=== PATIENT | female | born 1960 | race Caucasian/White ===

== ENCOUNTER → 2018-09-08 | Outpatient (CLI) | payer BC ==
[2018-09-08 14:08] LABS: HEMATOCRIT 40.1 % (36.0-47.0); MEAN CORPUSCULAR HEMOGLOBIN 31.1 pg (27.0-33.0); MEAN CORPUSCULAR HGB CONC 32.4 g/dl (32.0-36.5); MEAN CORPUSCULAR VOLUME 95.9 fl (80.0-96.0); PLATELET COUNT, AUTOMATED 296 10^3/uL (150-450); RED BLOOD COUNT 4.18 10^6/uL (4.00-5.40); WHITE BLOOD COUNT 6.1 10^3/uL (4.0-10.0)
[2018-09-08 14:26] LABS: HEMOGLOBIN A1c 5.6 %
[2018-09-08 14:49] LABS: ALBUMIN 3.6 GM/DL (3.2-5.2); ALT/SGPT 20 U/L (12-78); BILIRUBIN,TOTAL 0.9 MG/DL (0.2-1.0); BLOOD UREA NITROGEN 16 MG/DL (7-18); CALCIUM LEVEL 8.6 MG/DL (8.5-10.1); CARBON DIOXIDE LEVEL 29 MEQ/L (21-32); CHLORIDE LEVEL 107 MEQ/L (98-107); CHOLESTEROL LEVEL 189 MG/DL (<200); CHOLESTEROL RISK RATIO 2.392 (<5); CREATININE FOR GFR 0.84 MG/DL (0.55-1.30); GLOMERULAR FILTRATION RATE > 60.0 (>51); GLUCOSE, FASTING 78 MG/DL (70-100); HDL CHOLESTEROL 79 MG/DL (>40); LDL CHOLESTEROL 96 MG/DL (<100); NON-HDL-C 110 MG/DL; POTASSIUM SERUM 4.5 MEQ/L (3.5-5.1); SODIUM LEVEL 141 MEQ/L (136-145); TOTAL 25(OH) VITAMIN D 42.7 NG/ML (30.0-100.0); TOTAL PROTEIN 7.2 GM/DL (6.4-8.2); TRIGLYCERIDES LEVEL 70 MG/DL (<150)
== END ==
LOC: M LAB 13:37
PROVIDERS: ATTEND Family Medicine
DX: D64.9 Anemia, unspecified (principal); E03.9 Hypothyroidism, unspecified

== ENCOUNTER → 2018-11-28 | Outpatient (CLI) | payer BC | LOC: M LAB 14:16 | PROVIDERS: ATTEND Family Medicine | DX: R53.83 Other fatigue (principal) ==

== ENCOUNTER 2019-08-21 00:58 | Inpatient (IN) | payer BC ==
[~2019-08-21] VITALS: Ht 154.9 cm; Wt 47.5 kg
[2019-08-21] MEDS ORDERED: dexameTHASONE 20 MG/5 ML VIAL (J1100) IV ONE (01:45)
[2019-08-21] MEDS: IPRATROPIUM 0.5MG/ALBUTEROL 2.5MG INH SOL UD 3ML (DUONEB)(J7620) NEB SCH ×3 (01:56→02:42)
[2019-08-21] MEDS ORDERED: PRED20TA PO (03:55)
[2019-08-21 05:11] LABS: HEMATOCRIT 40.6 % (36.0-47.0); HEMOGLOBIN 12.8 g/dl (12.0-15.5); MEAN CORPUSCULAR HEMOGLOBIN 30.5 pg (27.0-33.0); MEAN CORPUSCULAR HGB CONC 31.5 g/dl (32.0-36.5); MEAN CORPUSCULAR VOLUME 96.9 fl (80.0-96.0); PLATELET COUNT, AUTOMATED 239 10^3/uL (150-450); RED BLOOD COUNT 4.19 10^6/uL (4.00-5.40); WHITE BLOOD COUNT 4.4 10^3/uL (4.0-10.0)
[2019-08-21 05:19] LABS: ATYPICAL LYMPH 1 % (0-5); BASOPHILS 1 % (0-1); EOSINOPHILS 1 % (0-3); LYMPHOCYTES 50 % (16-44); MONOCYTES 7 % (0-5); NEUTROPHILS 40 % (28-66)
[2019-08-21 05:20] LABS: BLOOD UREA NITROGEN 10 MG/DL (7-18); CARBON DIOXIDE LEVEL 24 MEQ/L (21-32); CHLORIDE LEVEL 103 MEQ/L (98-107); CREATININE FOR GFR 0.86 MG/DL (0.55-1.30); GLOMERULAR FILTRATION RATE > 60.0 (>51); GLUCOSE, FASTING 90 MG/DL (70-100); NT-PRO BNP 35 PG/ML (<125); PLATELET ESTIMATE NORMAL (NORMAL); POTASSIUM SERUM 3.6 MEQ/L (3.5-5.1); SODIUM LEVEL 139 MEQ/L (136-145)
[2019-08-21 05:23] LABS: ABG BASE EXCESS -3.9 (-2.0-2.0); ABG HCO3 19.9 MEQ/L (22.0-26.0); ABG O2 SATURATION 97.4 % (95.0-99.0); ABG PARTIAL PRESSURE CO2 32.3 mmHg (35.0-45.0); ABG PARTIAL PRESSURE O2 91.7 mmHg (75.0-100.0); ABG STANDARD HCO3 21.2 MEQ/L (22.0-26.0); ABG TOTAL CO2 20.9 MEQ/L (22.0-29.0); ABG pH (ARTERIAL) 7.407 UNITS (7.350-7.450)
[2019-08-21] MEDS ORDERED: LISI-542 PO (05:26)
[2019-08-21] MEDS ORDERED: LEVO88TA3 PO (05:26)
--- NOTE | 2019-08-21 05:52 | HPEPDOC ---
[facility] Medical History & Physical Date of Admission Aug 21, 2019 Date of Service: Aug 21, 2019 Primary Care Physician: Hina Chinchilla Attending Physician: NEELIMA ÁLVAREZ MD History and Physical TIME OF SERVICE: 6:10 AM CHIEF COMPLAINT:, Shortness of breath HISTORY OF PRESENT ILLNESS: This is a 53-year-old female that presents with complaints of dyspnea for several days that his become progressively worse over the last week and is worse when she tries to walk. Last night the shortness of breath was so bad that she was unable to sleep, so she came to the ER for evaluation. Associated symptoms include mild nausea cough productive of yellow sputum, and mid 10/10 chest pain that woke her up from sleep radiates to the right side of her back. She cannot identify any factors that aggravate the chest pain and reports that Tylenol helped a little bit. Currently, the chest pain is 1 /10. She denies having vomiting, fevers or chills. 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 Per discussion with Dr. Fan after receiving 3 nebs and steroids, the patient appeared to improve. While he was attempting to discharge her, the patient had a near fall while trying to walk to the nurse's station. REVIEW OF SYSTEMS: 12 point review of systems negative except as listed in HPI PAST MEDICAL/ SURGICAL HISTORY: Chronic HTN GERD Hiatial hernia. History of thyroid cancer / hypothyroidism History of breast cancer SOCIAL HISTORY: She smoked for 38 years but quit 8 years ago FAMILY HISTORY: Cancer ESRD Hypertension ALLERGIES: Please see below. HOME MEDICATIONS: Please see below. PHYSICAL EXAMINATION: VITAL SIGNS: Please see below. GEN: well nourished / well developed/ NAD INTEGUMENT: She is not flushed, she does not have facial plethora HEENT:NCAT / lips are not cyanotic / NC in place / mucus membranes moist and pink CVS: She is tachycardic LUNGS: She is able to speak full sentences without stopping to take a breath / is not using accessory muscles / her lungs are clear to auscultation bilaterally ABDOMEN: there are no masses or lesions / the abdomen is soft & not tender with palpation MSK/EXTREMITIES: range of motion intact in all 4 extremities NEURO: CN 2-12 are grossly intact / speech is not dysarthric PSYCH: alert and oriented to person place and time/ able to understand and follow all commands LABORATORY DATA: See below. IMAGING: X-ray appears unremarkable but the final report is pending. CT of the chest has been performed but the report is pending MICROBIOLOGY: Please see below. ASSESSMENT: Ms. Mahoney is a 59 old female with a history of HTN, GERD, hiatial hernia, thyroid and breast cancer and acquired hypothyroidism who is admitted for evaluation of dyspnea. PLAN: 1. Dyspnea Possibly due to bronchitis vs anxiety vs arrhythmia Less likely due to CO ABG and BNP were unremarkable CT chest to rule out PE is ordered by ER attending is pending Plan: Admit to medical floor/follow-up influenza panel, troponin, and EKG / follow-up chest x-ray and CT reports,/will hold off giving additional neb treatments because she is Tachycardic and feeling jittery 2. Tachycardia 2/2 Nebs - Plan: monitor vitals / f/u Mag 3. Pleuritic Chest Pain - Plan: f/u trop and EKG 4. Chronic HTN - Plan: Lisinopril 5. Hypothyrodism - Plan: Levothyroxine 6.GERD - Plan: PPI DVT PROPHYLAXIS: SCDs DISPOSITION: home after more than 2 midnight's stay Vital Signs Vital Signs Date Time Temp Pulse Resp B/P (MAP) Pulse Ox O2 Delivery O2 Flow Rate FiO2 08/21/19 05:05 102 18 129/68 (88) 96 Nasal Cannula 2.0 08/21/19 05:00 98.8 Laboratory Data Labs 24H Laboratory Tests 2 08/21/19 01:48: Nucleated Red Blood Cells % (auto) 0.0, Neutrophils 40, Lymphocytes (Manual) 50H, Monocytes (Manual) 7H, Eosinophils (Manual) 1, Basophils (Manual) 1, Atypical Lymphocytes 1, Red Blood Cell Morphology NORMAL, Platelet Estimate NORMAL, Anion Gap 12, Glomerular Filtration Rate > 60.0, Calcium Level 9.0, JM-Nok-D-Type Natriuretic Peptide 35 08/21/19 05:10: Blood Gas Bicarbonate Standard 21.2L, Arterial Blood pH 7.407, Arterial Blood Partial Pressure CO2 32.3L, Arterial Blood Partial Pressure O2 91.7, Arterial Blood Total CO2 20.9L, Arterial Blood HCO3 19.9L, Arterial Blood Base Excess - 3.9L, Arterial Blood Oxygen Saturation 97.4 CBC/BMP Laboratory Tests 08/21/19 01:48 Home Medications Scheduled Calcium Carbonate/Vitamin D3 (Calcium 600-Vit D3 400 Tablet) 1 Each Tablet, 3 TAB PO QPM TAKES IN AFTERNOON Cyanocobalamin (Vitamin B-12) (Vitamin B-12) 1,000 Mcg Tablet, 1,000 MCG PO QPM TAKES IN AFTERNOON Levothyroxine Sodium (Levothyroxine Sodium) 88 Mcg Tablet, 88 MCG PO DAILY Lisinopril (Lisinopril) 5 Mg Tablet, 5 MG PO DAILY Pantoprazole Sodium (Pantoprazole Sodium) 40 Mg Tablet.dr, 40 MG PO QHS TAKES AT MIDNIGHT Allergies Coded Allergies: Penicillins (Verified Allergy, Severe, anaphylaxis, 08/21/19) Sulfa (Sulfonamide Antibiotics) (Verified Allergy, Intermediate, lesions on back of throat, 08/21/19) A-FIB/CHADSVASC A-FIB History Current/History of A-Fib/PAF?: No Current PO Anticoag Therapy: No NEELIMA ÁLVAREZ MD Aug 21, 2019 05:52
[2019-08-21] MEDS ORDERED: ISOVUE-370 76% 100ML VIAL (Q9967) As Ordered ONE (05:54)
[2019-08-21] MEDS ORDERED: MOM 30ML SUSPENSION UDC PO PRN (06:00)
[2019-08-21] MEDS ORDERED: MAALOX 30 ML SUSP *UDC PO PRN (06:00)
[2019-08-21] MEDS ORDERED: CYAN100050 PO (06:18)
[2019-08-21] MEDS ORDERED: PANT40TA3 PO (06:18)
[2019-08-21] MEDS ORDERED: CALC1TAB63 PO (06:18)
--- NOTE | 2019-08-21 06:34 | REPVR ---
PROCEDURE INFORMATION: Exam: CT Angiography Chest With Contrast Exam date and time: 08/21/2019 6:01 AM Age: 59 years old Clinical indication: Dyspnea; Additional info: Dysp TECHNIQUE: Imaging protocol: Computed tomographic angiography of the chest with intravenous contrast. 3D rendering: MIP and/or 3D reconstructed images were created by the technologist. Radiation optimization: All CT scans at this facility use at least one of these dose optimization techniques: automated exposure control; mA and/or kV adjustment per patient size (includes targeted exams where dose is matched to clinical indication); or iterative reconstruction. Contrast material: ISOVUE 370; Contrast volume: 75 ml; Contrast route: IV; COMPARISON: CT ANGIO CHEST 08/10/2013 2:39 AM FINDINGS: Pulmonary arteries: The main pulmonary artery measures 25 mm. No pulmonary embolism is identified. Aorta: The ascending thoracic aorta measures 30 mm. Lungs: Minimal to mild bullous changes, greatest in the right upper lobe with slight interstitial coarsening and minimal scattered fibro-atelectatic change. Pulmonary hyperinflation with flattening of the hemidiaphragms. Pleural space: Unremarkable. No pneumothorax. No pleural effusion. Heart: Unremarkable. No cardiomegaly. No pericardial effusion. Liver: Metallic density at the anterolateral aspect of the hepatic dome. Gallbladder and bile ducts: Status post cholecystectomy. Mild biliary dilation which is attributed to prior cholecystectomy and is likely physiologic. The CBD measures 8 mm. Kidneys and ureters: There are bilateral renal cysts measuring up to 10 mm on the left. Lymph nodes: Unremarkable. No enlarged lymph nodes. Bones/joints: Unremarkable. No acute fracture. Soft tissues: Unremarkable. IMPRESSION: 1. Minimal to mild bullous changes, greatest in the right upper lobe with slight interstitial coarsening and minimal scattered fibro-atelectatic change. There is hyperinflation consistent with some degree of COPD. 2. Status post cholecystectomy. 3. Otherwise negative CTA chest. No pulmonary embolism is identified. Electronically signed by: Bob Nunez On 08/21/2019 06:33:57 AM
[2019-08-21] MEDS ORDERED: DIGOXIN INJ 0.5 MG/2 ML AMP (J1160) IV STA (07:28)
[2019-08-21 07:43] LABS: INR 1.04; PROTHROMBIN TIME 13.3 SECONDS (11.8-14.0)
--- NOTE | 2019-08-21 07:53 | REP ---
Clinical: Shortness of breath . Comparison: 06/12/2016 . Technique: PA and lateral. Findings: The mediastinum and cardiac silhouette are normal. The lung andre are clear and without acute consolidation, effusion, or pneumothorax. Subtle oligemia involving the right upper lung zone may represent early emphysematous change. The skeletal structures are intact and normal. Impression: 1. No acute cardiopulmonary process. Electronically Signed by Alireza Kraft MD 08/21/2019 07:44 A
[2019-08-21] MEDS ORDERED: lisinopriL 5 MG TAB PO SCH (09:00)
[2019-08-21] MEDS: DOCUSATE SODIUM 100 MG CAP PO SCH ×2 (09:00→20:34)
--- NOTE | 2019-08-21 09:49 | ECGEPIP ---
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
[2019-08-21 10:00] VITALS: BP 125/81
[2019-08-21] MEDS: LEVOTHYROXINE 88MCG TABLET (0.088 MG) PO SCH (10:23)
--- NOTE | 2019-08-21 10:32 | IPNPDOC ---
Text Note Date of Service The patient was seen on 08/21/19. NOTE Subjective: Patient is a 59-year-old female presented to the emergency [facility] around midnight last evening with worsening short of breath. Patient states she's been short of breath for a few weeks and is been worsening. Patient also has been feeling palpitations. Patient was admitted for dyspnea however, just prior to going up to the floor, patient's heart rate went up to about 150. EKG was performed which showed either atrial fibrillation or atrial flutter with a rapid ventricular rate. Patient says she felt worsening of her palpitations. Patient does feel like her breathing is better. Patient's main complaint she is very thirsty. Objective: Vitals: (see below) General: No acute distress, laying comfortably in bed with nasal cannula in place. HEENT: Normocephalic, atraumatic, moist mucous membranes. Neck: No JVD or lymphadenopathy Cardiac: Regular rhythm, tachycardic rate, no murmurs, normal S1 and normal S2. Pulm: Diminished breath sounds in all lung andre. Abd: NT/ND + BS Ext: No edema or cyanosis. Radial pulse 2/4 and regular rhythm, tachycardic rate Labs (see below) Images: A chest x-ray performed on 08/21/2019 was reported as showing no acute cardiopulmonary process. A CT angiography of the chest performed on 08/21/2019 was reported to show minimal to mild bullous changes, greatest in the right upper lobe with slight interstitial coarsening and minimal scattered fibro-atelectatic change. There is hyperinflation cirrhosis with some degree of COPD., Status post cholecystectomy, otherwise negative CTA of the chest. No pulmonary embolus is identified. Assessment: 51-year-old female presented to the hospital with dyspnea which is now thought to be secondary to tachyarrhythmia. Patient was diagnosed with a tachyarrhythmia which is thought to be either atrial fibrillation with rapid ventricular rate or atrial flutter with a 2-1 conduction block. Patient was status post 0.125 mg of digoxin. Plan 1. New onset tachyarrhythmia. Patient appeared to be either in atrial fibrillation or atrial flutter on EKG however, patient quickly converted back to sinus tachycardia. Patient was given 0.125 mg of digoxin the IV. Patient was initially in a go to the surgical floor however, because of this new onset tachyarrhythmia, patient has been transferred to the progressive care unit for closer monitoring. Patient will remain on telemetry. Echocardiogram has been ordered. Another the patient's heart rate is around 100, repeat EKG will be ordered. Based on the results of the echocardiogram, cardiology will be consulted. If the patient's heart rate becomes elevated again, a repeat EKG will be performed and the patient will be given adenosine. TSH and free T4 has also been ordered. 2. Dyspnea: Patient's CT angiogram of the chest do not show any pulmonary embolism however, it does show COPD. Patient is not wheezing on exam so did not believe this is a COPD exacerbation. I think the patient's dyspnea is secondary to the patient's tachyarrhythmia. We will continue to monitor. 3. Pleuritic chest pain: I believe is secondary to the patient's tachyarrhythmia. Patient's troponin was negative. 4. Hypertension: Patient's lisinopril will be held at this time in order to allow for us to use other medications to slow down the patient's heart rate and not to make her too hypotensive. 5. Hypothyroidism: Patient is currently on the thyroxine. We're checking a TSH and free T4 to ensure that this is within the right range this is not what is causing her tachyarrhythmia. If they're within normal range, we will continue with her current dose. 6. GERD: Continue with PPI DVT prophy: Sequential compression devices Dispo: Pending clinical improvement of tachyarrhythmia VS,Fishbone, I+O VS, Fishbone, I+O Laboratory Tests 08/21/19 01:48 Vital Signs Date Time Temp Pulse Resp B/P (MAP) Pulse Ox O2 Delivery O2 Flow Rate FiO2 08/21/19 10:00 97.5 99 18 125/81 (96) 97 Room Air 08/21/19 09:42 3.0 GME ATTESTATION GME ATTESTATION My faculty preceptor for this patient encounter was physically present during the encounter and was fully available. All aspects of the patient interview, examination, medical decision making process, and medical care plan development were reviewed and approved by the faculty preceptor. The faculty preceptor is aware and concurs with the plan as stated in the body of this note and will attest to such by his/her cosignature. ATTENDING NOTE 59 yo woman with a history of thyroid cancer s/p thyroidectomy and parathyroidectomy and remote hx of breast CA who presented with shortness of breath and found to be hypoxemic on room air requiring 4L NC reporting palpitations and LAZARO that progressed to dyspnea at rest with investigations that were negative for ACS, PNA , PE or acute heart failure now found to be going into an episodic supraventricular tachycardia that was initially thought to be AFib vs. Aflutter and broke with digoxin and she feels better. At this time our plan is to continue monitoring while switching her nebs to tiotrop/levalbuterol and if she goes into RVR again, will give adenosine to nature of her SVT. In the meantime we have ordered a TTE. Of note, she reported a history of progressive peripheral neuropathy over the last 1-2 years that she had been discussing a neurology consultation with her PCP. At this time, we are waiting for her TTE before formulating a question for cardiology, and will hold off anticoagulation without a clear history of Afib. GRAEME WOLFE DO Aug 21, 2019 10:32 VLAD DUARTE MD Aug 21, 2019 21:15
[2019-08-21 12:01] VITALS: BP 118/74
[2019-08-21 12:18] LABS: FREE T4 1.12 NG/DL (0.76-1.46); THYROID STIMULATING HORMONE 8.89 uIU/ML (0.358-3.740)
[2019-08-21 14:00] VITALS: BP 117/63
--- NOTE | 2019-08-21 14:14 | ECGEPIP ---
[facility] Test Date: 2019-08-21 Pat Name: RIKI AARON Department: Room: [place] [address] Gender: Female Radiologic Technician: MARIA GUADALUPE : 1960 Requested By: GRAEME WOLFE Order Number: [id number] Reading MD: China Gonzales Measurements Intervals [place] Rate: 82 P: 72 VT: 196 QRS: 103 QRSD: 99 T: 142 QT: 367 QTc: 430 Interpretive Statements SINUS RHYTHM PREVIOUSLY A FIB INDETERMINATE AXIS MODERATE DIFFUSE sttw abn NOT PROMINENT 08/21/19 EA EARLIER LOW VOLT LIMB LEADS PULM DIS PATTERN Electronically Signed on 08-21-2019 14:14:11 EST by China Gonzales
[2019-08-21] MEDS: TIOTROPIUM INHALER/CAPSULE (SPIRIVA) INH SCH (14:56)
[2019-08-21] MEDS: LEVALBUTEROL 1.25 MG/0.5 ML CONCENTRATE NEB INH SCH ×2 (15:31→20:16)
[2019-08-21 20:00] VITALS: BP 119/71
[2019-08-21] MEDS: PANTOPRAZOLE 40MG TAB (PROTONIX) PO SCH (20:34)
[2019-08-22] VITALS (7 sets, daily range): BP systolic 119–133; BP diastolic 69–78
[2019-08-22] MEDS: LEVALBUTEROL 1.25 MG/0.5 ML CONCENTRATE NEB INH SCH ×2 (01:57→08:13)
[2019-08-22 05:51] LABS: HEMATOCRIT 38.5 % (36.0-47.0); HEMOGLOBIN 12.1 g/dl (12.0-15.5); MEAN CORPUSCULAR HEMOGLOBIN 30.6 pg (27.0-33.0); MEAN CORPUSCULAR HGB CONC 31.4 g/dl (32.0-36.5); MEAN CORPUSCULAR VOLUME 97.5 fl (80.0-96.0); PLATELET COUNT, AUTOMATED 237 10^3/uL (150-450); RED BLOOD COUNT 3.95 10^6/uL (4.00-5.40); WHITE BLOOD COUNT 9.7 10^3/uL (4.0-10.0)
[2019-08-22] MEDS: LEVOTHYROXINE 88MCG TABLET (0.088 MG) PO SCH (06:14)
[2019-08-22 06:17] LABS: BLOOD UREA NITROGEN 10 MG/DL (7-18); CALCIUM LEVEL 8.4 MG/DL (8.5-10.1); CARBON DIOXIDE LEVEL 30 MEQ/L (21-32); CHLORIDE LEVEL 109 MEQ/L (98-107); CREATININE FOR GFR 0.93 MG/DL (0.55-1.30); GLOMERULAR FILTRATION RATE > 60.0 (>51); GLUCOSE, FASTING 87 MG/DL (70-100); SODIUM LEVEL 144 MEQ/L (136-145)
[2019-08-22] MEDS: TIOTROPIUM INHALER/CAPSULE (SPIRIVA) INH SCH (08:13)
[2019-08-22] MEDS: DOCUSATE SODIUM 100 MG CAP PO SCH ×2 (08:58→20:08)
[2019-08-22] MEDS: ACETAMINOPHEN TAB 650MG DOSE (2X325MG) PO PRN (09:05)
[2019-08-22] MEDS ORDERED: LEVALBUTEROL 1.25 MG/0.5 ML CONCENTRATE NEB INH PRN (09:15)
--- NOTE | 2019-08-22 11:49 | ECHO ---
DATE OF PROCEDURE: 08/21/2019 HEIGHT: 61 inches WEIGHT: 116 pounds. BODY SURFACE AREA 1.5 meters squared. INPATIENT: PCU room 3215 REFERRING PHYSICIAN: Dr. Cody Salas INDICATION: Dysrhythmia. MEASUREMENTS: 2D Measurements: RV - 2.5 cm LV - 4.0 cm Septum - 0.8 cm Posterior wall - 0.8 cm Aortic root - 3.36 cm LA - 2.5 cm LVEF - 75% Doppler Measurements: AV - 1.24 meters per second LVOT - 1.1 meters per second LVOT diameter - 2.0 cm MV - E - 60, A - 70, E/A ratio 0.9 Early mitral deceleration time - 239 milliseconds E prime medial - 8.8, A prime medial - 12, E prime lateral - 9.2 PV - 0.8 meters per second Pulmonary artery acceleration time - 120 milliseconds RVSP - 20 mmHg IVC - 1.9 cm COMMENTS: Normal sinus rhythm without intraventricular conduction disturbance. M-mode and two-dimensional echocardiography was performed with pulsed, continuous wave, color flow and tissue Doppler studies. Normal left ventricular size, wall thickness and hyperkinetic wall motion. Normal left atrial size and Doppler assessment of LV diastolic function and estimated mean left atrial pressure. Normal right heart chamber sizes and motion and estimated pulmonary arterial pressure. Normal IVC size and collapse against an elevated central venous pressure. Normal appearing and functioning valvular structures. No apparent intracardiac mass or pericardial effusion.
--- NOTE | 2019-08-22 13:11 | IPNPDOC ---
Text Note Date of Service The patient was seen on 08/22/19. NOTE Subjective: -Doing OK this morning, no dysrhythmia events overnight on telemetry. Feels nauseous this morning, reports that it is quite mild. Objective: Vitals: (see below) General: No acute distress, laying comfortably in bed with nasal cannula in place. HEENT: Normocephalic, atraumatic, moist mucous membranes. Neck: No JVD or lymphadenopathy Cardiac: RRR, no murmurs, normal S1 and normal S2. Pulm: CTAB Abd: NT/ND + BS Ext: No edema or cyanosis. Radial pulse 2/4 and regular rhythm Images: Chest x-ray: performed on 08/21/2019 was reported as showing no acute cardio pulmonary process. CTA: 08/21/2019 was reported to show minimal to mild bullous changes, greatest i n the right upper lobe with slight interstitial coarsening and minimal scattered fibro-atelectatic change. There is hyperinflation cirrhosis with some degree of COPD. Status post cholecystectomy, otherwise negative CTA of the chest. No pulmonary embolus is identified. Assessment: 59 yo woman with a history of thyroid cancer s/p thyroidectomy and parathyroidectomy and remote hx of breast CA who presented with shortness of breath and found to be hypoxemic on room air requiring 4L NC reporting pa lpitations and LAZARO that progressed to dyspnea at rest with investigations that were negative for ACS, PNA , PE or acute heart failure now found to be going into an episodic supraventricular tachycardia that was initially thought to be AFib vs. Aflutter and broke with digoxin and she feels better. At this time our plan is to continue monitoring while giving home tiotrop and PRN levalbuterol and if she goes into RVR again, will give adenosine to nature of her SVT. In the meantime we have ordered a TTE. Of note, she reported a history of progressive peripheral neuropathy over the last 1-2 years that she had been discussing a neurology consultation with her PCP. At this time, we are waiting for her TTE before formulating a question for cardiology, and will hold off anticoagulation without a clear history of Afib. Plan 1. New onset symptomatic tachyarrhythmia. -Patient appeared to be either in atrial fibrillation or atrial flutter on EKG in the ED and quickly converted back to sinus tachycardia and normalized after 0.125 mg of digoxin. -Continue telemetry. -Echocardiogram was done, pending read. -Based on the results of the echocardiogram, cardiology might be consulted. -If the patient's heart rate becomes elevated again, to repeat EKG and give adenosine to decipher the nature of the SVT. -TSH elevated with normal free T4 2. Dyspnea: -CTA without PNA, fluid overload or PE with evidence of COPD. -No acute signs of exacerbation will give home tiotropium and PRN levalbuterol 3. Pleuritic chest pain: I believe is secondary to the patient's tachyarrhythmia. Patient's troponin was negative and EKG was non ischemic 4. Hypertension: continue QHS lisinopril 5. Hypothyroidism: continue synthroid 6. GERD: Continue with PPI DVT prophy: Sequential compression devices Dispo: Pending clinical improvement of tachyarrhythmia VS,Fishbone, I+O VS, Fishbone, I+O Laboratory Tests 08/22/19 05:26 Vital Signs Date Time Temp Pulse Resp B/P (MAP) Pulse Ox O2 Delivery O2 Flow Rate FiO2 08/22/19 08:00 98.2 65 18 125/78 (94) 92 Nasal Cannula 2.0 I&O- Last 24 Hours up to 6 AM 08/22/19 06:00 Intake Total 540 ml Output Total 1200 ml Balance -660 ml LVAD DUARTE MD Aug 22, 2019 09:20
[2019-08-22] MEDS: PANTOPRAZOLE 40MG TAB (PROTONIX) PO SCH (20:08)
[2019-08-22] MEDS ORDERED: lisinopriL 5 MG TAB PO SCH ×2 (21:00)
[2019-08-23] VITALS: BP 122/70
[2019-08-23 04:00] VITALS: BP 125/77
[2019-08-23] MEDS: LEVOTHYROXINE 88MCG TABLET (0.088 MG) PO SCH (05:15)
[2019-08-23 05:40] LABS: HEMATOCRIT 39.2 % (36.0-47.0); HEMOGLOBIN 12.3 g/dl (12.0-15.5); MEAN CORPUSCULAR HEMOGLOBIN 30.9 pg (27.0-33.0); MEAN CORPUSCULAR HGB CONC 31.4 g/dl (32.0-36.5); MEAN CORPUSCULAR VOLUME 98.5 fl (80.0-96.0); PLATELET COUNT, AUTOMATED 231 10^3/uL (150-450); RED BLOOD COUNT 3.98 10^6/uL (4.00-5.40); WHITE BLOOD COUNT 7.5 10^3/uL (4.0-10.0)
[2019-08-23 05:59] LABS: BLOOD UREA NITROGEN 14 MG/DL (7-18); CALCIUM LEVEL 8.4 MG/DL (8.5-10.1); CARBON DIOXIDE LEVEL 30 MEQ/L (21-32); CHLORIDE LEVEL 105 MEQ/L (98-107); CREATININE FOR GFR 0.88 MG/DL (0.55-1.30); GLOMERULAR FILTRATION RATE > 60.0 (>51); GLUCOSE, FASTING 83 MG/DL (70-100); POTASSIUM SERUM 4.1 MEQ/L (3.5-5.1); SODIUM LEVEL 141 MEQ/L (136-145)
[2019-08-23] MEDS: DOCUSATE SODIUM 100 MG CAP PO SCH (07:33)
[2019-08-23] MEDS: ACETAMINOPHEN TAB 650MG DOSE (2X325MG) PO PRN (07:34)
[2019-08-23 08:00] VITALS: BP 107/77
[2019-08-23] MEDS: TIOTROPIUM INHALER/CAPSULE (SPIRIVA) INH SCH (08:17)
[2019-08-23 12:00] VITALS: BP 121/77
--- NOTE | 2019-08-23 12:26 | DS.PDOC ---
Discharge Summary General Date of Admission Aug 21, 2019 at 05:53 Date of Discharge 08/23/2019 Attending Physician: VLAD DUARTE MD Discharge Summary PROCEDURES PERFORMED DURING STAY: None ADMITTING DIAGNOSES: 1. Dyspnea DISCHARGE DIAGNOSES: 1. Symptomatic episodic supraventricular tachycardia 2. Chronic HTN 3. GERD 4. Hiatial hernia. 5. History of thyroid cancer / hypothyroidism 6. History of breast cancer COMPLICATIONS/CHIEF COMPLAINT: Dyspnea. HISTORY OF PRESENT ILLNESS: 9 yo woman with a history of thyroid cancer s/p thyroidectomy and parathyroidectomy and remote hx of breast CA who presented with shortness of breath and found to be hypoxemic on room air requiring 4L NC reporting palpitations and LAZARO that progressed to dyspnea at rest HOSPITAL COURSE: Initial investigations were negative for ACS, PNA , PE or acute heart failure and she had an episode of a supraventricular tachycardia initially that was recorded as AFib vs. Aflutter with a poor baseline to decipher it, that broke with digoxin and she felt better. We admitted her to the PCU with a plan to continue telemetry while giving home tiotroprium and PRN levalbuterol for her SOB possibly being due to a URI and if she had gone into RVR again would give adenosine to decipher the nature of her SVT. She never did have another tachycardia episode. We ordered a TTE that was grossly normal. Give the transient nature of the tachycardia without clear evidence of Afib we decided not to place her on therapeutic anticoagulation. On further discussion, she told me that she has been seen by Dr. Jimenez before for these episodic symptomatic tachycardia episodes, has had 2 holter monitors one of which was a 30 day recorder without significant events. Given that, I am now discharging her home w ith a referral to cardiology to follow up with Dr. Jimenez on these persistent episodes of symptomatic transient tachycardia. DISCHARGE MEDICATIONS: Please see below. ALLERGIES: Please see below. PHYSICAL EXAMINATION ON DISCHARGE: VITAL SIGNS: Please see below. General: No acute distress, sitting up comfortably in bed on room air HEENT: Normocephalic, atraumatic, moist mucous membranes. Neck: No JVD or lymphadenopathy Cardiac: RRR, no murmurs, normal S1 and normal S2. Pulm: CTAB, breathing comfortably on room air Abd: NT/ND + BS Ext: No edema or cyanosis, WWP, 2+ DP pulses LABORATORY DATA: Please see below. IMAGING: Chest x-ray: performed on 08/21/2019 was reported as showing no acute cardiopulmonary process. CTA: 08/21/2019 was reported to show minimal to mild bullous changes, greatest in the right upper lobe with slight interstitial coarsening and minimal scattered fibro-atelectatic change. There is hyperinflation cirrhosis with some degree of COPD. Status post cholecystectomy, otherwise negative CTA of the chest. No pulmonary embolus is identified. TTE: Normal sinus rhythm without intraventricular conduction disturbance. M-mode and two-dimensional echocardiography was performed with pulsed, continuous wave, color flow and tissue Doppler studies. Normal left ventricular size, wall thickness and hyperkinetic wall motion. Normal left atrial size and Doppler assessment of LV diastolic function and estimated mean left atrial pressure. Normal right heart chamber sizes and motion and estimated pulmonary arterial pressure. Normal IVC size and collapse against an elevated central venous pressure. Normal appearing and functioning valvular structures. PROGNOSIS: Good ACTIVITY: As tolerated DIET: Regular DISCHARGE PLAN: Home with cardiology referral to Dr. Jimenez' office DISPOSITION: Home DISCHARGE INSTRUCTIONS: 1. Please follow up with the referral we made to cardiology to be evaluated by Dr. Jimenez ITEMS TO FOLLOWUP ON ON OUTPATIENT: 1. Episodic symptomatic tachycardia DISCHARGE CONDITION: Stable. TIME SPENT ON DISCHARGE: 46 minutes. Vital Signs/I&Os Vital Signs Date Time Temp Pulse Resp B/P (MAP) Pulse Ox O2 Delivery O2 Flow Rate FiO2 08/23/19 08:00 98.3 73 16 107/77 (87) 92 Room Air 08/23/19 04:00 0.5 I&O- Last 24 Hours up to 6 AM 08/23/19 06:00 Intake Total 960 ml Output Total 1150 ml Balance -190 ml Laboratory Data Labs 24H Laboratory Tests 2 08/23/19 05:15: Nucleated Red Blood Cells % (auto) 0.0, Anion Gap 6L, Glomerular Filtration Rate > 60.0, Calcium Level 8.4L CBC/BMP Laboratory Tests 08/23/19 05:15 Microbiology Microbiology 08/22/19 Respiratory Virus Panel (PCR) ([facility]) - Final, Complete 08/21/19 Blood Culture - Preliminary, Resulted No Growth after 48 hours. All Specime... Discharge Medications Scheduled Calcium Carbonate/Vitamin D3 (Calcium 600-Vit D3 400 Tablet) 1 Each Tablet, 3 TAB PO QPM, (Reported) TAKES IN AFTERNOON Cyanocobalamin (Vitamin B-12) (Vitamin B-12) 1,000 Mcg Tablet, 1,000 MCG PO QPM, (Reported) TAKES IN AFTERNOON Levothyroxine Sodium (Levothyroxine Sodium) 88 Mcg Tablet, 88 MCG PO DAILY, (Reported) Lisinopril (Lisinopril) 5 Mg Tablet, 5 MG PO DAILY, (Reported) Pantoprazole Sodium (Pantoprazole Sodium) 40 Mg Tablet.dr, 40 MG PO QHS, (Reported) TAKES AT MIDNIGHT Allergies Coded Allergies: Penicillins (Verified Allergy, Severe, anaphylaxis, 08/21/19) Sulfa (Sulfonamide Antibiotics) (Verified Allergy, Intermediate, lesions on back of throat, 08/21/19) VLAD DUARTE MD Aug 23, 2019 12:26
[2019-08-23] MEDS ORDERED: SODIUM CHLORIDE NASAL 0.65% SPRAY BTL (OCEAN) PRN (12:30)
[2019-08-23] MEDS ORDERED: TIOT18INH INH (13:32)
== END 2019-08-23 13:30 | disposition home or self-care (01) | DRG 201 ==
LOC: M ED 00:58 → M ED INP 05:53 → ENRESERV 06:05 → M PCU 10:03
PROVIDERS: ADMIT Internal Medicine; ATTEND Internal Medicine
DX: I47.1 Supraventricular tachycardia (principal); I10 Essential (primary) hypertension; K74.60 Unspecified cirrhosis of liver; K21.9 Gastro-esophageal reflux disease without esophagitis; K44.9 Diaphragmatic hernia without obstruction or gangrene; Z85.3 Personal history of malignant neoplasm of breast; E89.0 Postprocedural hypothyroidism; Z85.850 Personal history of malignant neoplasm of thyroid; J44.9 Chronic obstructive pulmonary disease, unspecified; Z88.0 Allergy status to penicillin; Z88.2 Allergy status to sulfonamides; Z79.899 Other long term (current) drug therapy; Z90.49 Acquired absence of other specified parts of digestive tract

== ENCOUNTER → 2019-10-02 | Outpatient (REF) | payer BC ==
[~2019-10-02] MED LIST: CALC1TAB63 PO; CYAN100050 PO; LEVO88TA3 PO; LISI-542 PO; PANT40TA3 PO; PRED20TA PO; TIOT18INH INH
[2019-10-02 22:28] LABS: INFLUENZA A AMPLIFICATION NEGATIVE (NEGATIVE); INFLUENZA B AMPLIFICATION NEGATIVE (NEGATIVE)
== END ==
LOC: M LAB REF 21:31
PROVIDERS: ATTEND Physician Assistant Medical
DX: J11.1 Influenza due to unidentified influenza virus with other respiratory manifestations (principal); J02.9 Acute pharyngitis, unspecified

== ENCOUNTER → 2020-02-08 | Outpatient (CLI) | payer BC ==
[~2020-02-08] MED LIST changes: +PANT40TA29 PO; -PANT40TA3 PO; +PROAAER10 INH; +SYMB16INH INH
[2020-03-09 13:11] LABS: HEMATOCRIT 43.5 % (36.0-47.0); HEMOGLOBIN 13.7 g/dl (12.0-15.5); MEAN CORPUSCULAR HEMOGLOBIN 31.3 pg (27.0-33.0); MEAN CORPUSCULAR HGB CONC 31.5 g/dl (32.0-36.5); MEAN CORPUSCULAR VOLUME 99.3 fl (80.0-96.0); PLATELET COUNT, AUTOMATED 307 10^3/uL (150-450); RED BLOOD COUNT 4.38 10^6/uL (4.00-5.40); WHITE BLOOD COUNT 5.3 10^3/uL (4.0-10.0)
[2020-03-09 13:37] LABS: ERYTHROCYTE SEDIMENTATION RATE 6 mm/hr (0-30)
[2020-03-25 08:36] LABS: ALBUMIN 3.9 GM/DL (3.2-5.2); ALT/SGPT 17 U/L (12-78); BLOOD UREA NITROGEN 14 MG/DL (7-18); CALCIUM LEVEL 8.9 MG/DL (8.5-10.1); CARBON DIOXIDE LEVEL 31 MEQ/L (21-32); CHLORIDE LEVEL 108 MEQ/L (98-107); CHOLESTEROL LEVEL 197 MG/DL (<200); CHOLESTEROL RISK RATIO 2.373 (<5); CREATININE FOR GFR 0.94 MG/DL (0.55-1.30); GLOMERULAR FILTRATION RATE > 60.0 (>51); GLUCOSE, FASTING 79 MG/DL (70-100); HDL CHOLESTEROL 83 MG/DL (>40); IRON (FE) 112 UG/DL (50-170); LDL CHOLESTEROL 99 MG/DL (<100); NON-HDL-C 114 MG/DL; PERCENT SATURATION 33.1 % (13.2-45.0); SODIUM LEVEL 138 MEQ/L (136-145); TOTAL IRON BINDING CAPACITY 338 UG/DL (250-450); TOTAL PROTEIN 7.5 GM/DL (6.4-8.2); TRIGLYCERIDES LEVEL 73 MG/DL (<150)
== END ==
LOC: M LAB 11:19
PROVIDERS: ATTEND Family Medicine
DX: D64.9 Anemia, unspecified (principal); R53.83 Other fatigue; E03.9 Hypothyroidism, unspecified

== ENCOUNTER → 2020-03-07 | Outpatient (CLI) | payer BC | LOC: M LABSMTC 11:41 | PROVIDERS: ATTEND Anesthesiology | DX: Z03.818 Encounter for observation for suspected exposure to other biological agents ruled out (principal); Z11.59 Encounter for screening for other viral diseases | CPT/HCPCS: C9803; U0003 ==

== ENCOUNTER 2020-03-12 07:33 | Day surgery (SDC) | payer BC ==
[~2020-03-12] VITALS: Ht 154.9 cm; Wt 49.0 kg
[~2020-03-12 07:33] MED LIST changes: +NS 1,000 ML IV ONE
[2020-03-12] MEDS ORDERED: LIDOCAINE 2% 100MG/5ML SDV (FOR ANES.) As Ordered ONE (09:13)
[2020-03-12] MEDS ORDERED: propofoL 200 MG/20 ML VIAL As Ordered ONE (09:13)
[2020-03-12] MEDS ORDERED: fentaNYL 100 MCG/2 ML INJECTION (J3010) As Ordered ONE (09:13)
[2020-03-12 10:00] VITALS: BP 125/70
--- NOTE | 2020-03-20 11:31 | ROOR ---
Patient Name: Phyllis Mahoney Procedure Date: 03/12/2020 8:01 AM Date of : 1960 Age: 60 Room: [facility] Gender: Female Note Status: Finalized Procedure: Upper Endoscopy + Biopsies Indications: Heartburn, Exclusion of Chi's esophagus Providers: Luc Moralez MD Referring MD: LIUDMILA LIRIANO MD Requesting Provider: Medicines: Monitored Anesthesia Care Complications: No immediate complications. Procedure: Pre-Anesthesia Assessment: - The heart rate, respiratory rate, oxygen saturations, blood pressure, adequacy of pulmonary ventilation, and response to care were monitored throughout the procedure. The Endoscope was introduced through the mouth, and advanced to the second part of duodenum. The upper GI endoscopy was accomplished without difficulty. The patient tolerated the procedure well. Findings: The Z-line was regular and was found 40 cm from the incisors. Multiple biopsies were obtained with cold forceps for evaluation to rule out Chi's Esophagus randomly at the gastroesophageal junction. No other significant abnormalities were identified in a careful examination of the stomach. The exam of the duodenum was otherwise normal. Impression: - Z-line regular, 40 cm from the incisors. - Multiple biopsies were obtained at the gastroesophageal junction. - The examination was otherwise normal. Recommendation: - Patient has a contact number available for emergencies. The signs and symptoms of potential delayed complications were discussed with the patient. Return to normal activities tomorrow. Written discharge instructions were provided to the patient. - High fiber diet. - Discharge patient to home. - Follow an antireflux regimen. - Continue present medications. - Await pathology results. - Telephone GI clinic for pathology results in 1 week. - Return to referring physician. - Repeat upper endoscopy after studies are complete for surveillance. - The findings and recommendations were discussed with the patient. Luc Moralez MD Luc Moralez MD 03/12/2020 9:13:40 AM Electronically signed by Luc Moralez MD Number of Addenda: 0 Note Initiated On: 03/12/2020 8:01 AM Estimated Blood Loss: Estimated blood loss: none.
== END 2020-03-12 10:25 | disposition home or self-care (01) ==
LOC: M OPP 07:33
PROVIDERS: ATTEND Internal Medicine Gastroenterology
DX: K64.0 First degree hemorrhoids (principal); K57.30 Diverticulosis of large intestine without perforation or abscess without bleeding; R63.4 Abnormal weight loss; R19.4 Change in bowel habit; R12 Heartburn; E03.9 Hypothyroidism, unspecified; J44.9 Chronic obstructive pulmonary disease, unspecified; Z79.899 Other long term (current) drug therapy; Z88.0 Allergy status to penicillin; Z88.2 Allergy status to sulfonamides; Z88.5 Allergy status to narcotic agent; Z87.891 Personal history of nicotine dependence
CPT/HCPCS: 43239; 45380; 88305; J3010

== ENCOUNTER → 2020-07-25 | Outpatient (CLI) | payer SELFPAY ==
[~2020-07-25] MED LIST changes: -NS 1,000 ML IV ONE
== END ==
LOC: M LABSMTC 10:54
PROVIDERS: ATTEND Pediatrics
DX: Z20.822 Contact with and (suspected) exposure to COVID-19 (principal)

== ENCOUNTER 2020-08-16 12:27 | Inpatient (IN) | payer BC ==
[~2020-08-16] VITALS: Ht 154.9 cm; Wt 46.9 kg
[~2020-08-16 12:27] MED LIST changes: -LISI-542 PO; +LISI-898 PO
--- OUTSIDE RECORDS SUMMARY | 2020-08-16 12:40 | CCD ---
Author Author [facility] Organization [facility] Address Unknown Phone Unavailable Care Team Providers Care Entry Level Name Role Phone Terrence Moralez MD Unavailable Unavailable Terrence Moralez MD Unavailable Unavailable Terrence Moralez MD Unavailable Unavailable Terrence Moralez MD Unavailable Unavailable Terrence Moralez MD Unavailable Unavailable Terrence Moralez MD Unavailable Unavailable Terrence Moralez MD Unavailable Unavailable Terrence Moralez MD Unavailable Unavailable Terrence Moralez MD Unavailable Unavailable Terrence Moralez MD Unavailable Unavailable Terrence Moralez MD Unavailable Unavailable Terrence Moralez MD Unavailable Unavailable Terrence Moralez MD Unavailable Unavailable Terrence Moralez MD Unavailable Unavailable Terrence Moralez MD Unavailable Unavailable Terrence Moralez MD Unavailable Unavailable Terrence Moralez MD Unavailable Unavailable Terrence Moralez MD Unavailable Unavailable Terrence Moralez MD Unavailable Unavailable Terrence Moralez MD Unavailable Unavailable Terrence Moralez MD Unavailable Unavailable Terrence Moralez MD Unavailable Unavailable Terrence Moralez MD Unavailable Unavailable Terrence Moralez MD Unavailable Unavailable Terrence Moralez MD Unavailable Unavailable Terrence Moralez MD Unavailable Unavailable Terrence Moralez MD Unavailable Unavailable Terrence Moralez MD Unavailable Unavailable Terrence Moralez MD Unavailable Unavailable Terrence Moralez MD Unavailable Unavailable Terrence Moralez MD Unavailable Unavailable Terrence Moralez MD Unavailable Unavailable Terrence Moralez MD Unavailable Unavailable Kirt, S Luc MD Unavailable Unavailable Kirt, S Luc MD Unavailable Unavailable Kirt, S Luc MD Unavailable Unavailable Kirt, S Luc MD Unavailable Unavailable Kirt, S Luc MD Unavailable Unavailable Kirt, S Luc MD Unavailable Unavailable Kirt, S Luc MD Unavailable Unavailable Kirt, S Luc MD Unavailable Unavailable Kirt, S Luc MD Unavailable Unavailable Kirt, S Luc MD Unavailable Unavailable Kirt, S Luc MD Unavailable Unavailable Kirt, S Luc MD Unavailable Unavailable Kirt, S Luc MD Unavailable Unavailable Kirt, S Luc MD Unavailable Unavailable Kirt, S Luc MD Unavailable Unavailable Kirt, S Luc MD Unavailable Unavailable Lyn Chinchilla MD Unavailable Unavailable Lyn Chinchilla MD Unavailable Unavailable Lyn Chinchilla MD Unavailable Unavailable Lyn Chinchilla MD Unavailable Unavailable Lyn Chinchilla MD Unavailable Unavailable Lyn Chinchilla MD Unavailable Unavailable Lyn Chinchilla MD Unavailable Unavailable Lyn Chinchilla MD Unavailable Unavailable Lyn Chinchilla MD Unavailable Unavailable Lyn Chinchilla MD Unavailable Unavailable Lyn Chinchilla MD Unavailable Unavailable Lyn Chinchilla MD Unavailable Unavailable Lyn Chinchilla MD Unavailable Unavailable Lyn Chinchilla MD Unavailable Unavailable Lyn Chinchilla MD Unavailable Unavailable Lyn Chinchilla MD Unavailable Unavailable Lyn Chinchilla MD Unavailable Unavailable Lyn Chinchilla MD Unavailable Unavailable Lyn Chinchilla MD Unavailable Unavailable Lyn Chinchilla MD Unavailable Unavailable Lyn Chinchilla MD Unavailable Unavailable Lyn Chinchilla MD Unavailable Unavailable Lyn Chinchilla MD Unavailable Unavailable Lyn Chinchilla MD Unavailable Unavailable Lyn Chinchilla MD Unavailable Unavailable Lyn Chinchilla MD Unavailable Unavailable Lyn Chinchilla MD Unavailable Unavailable Lyn Chinchilla MD Unavailable Unavailable Lyn Chinchilla MD Unavailable Unavailable Lyn Chinchilla MD Unavailable Unavailable Lyn Chinchilla MD Unavailable Unavailable Lyn Chinchilla MD Unavailable Unavailable Lyn Chinchilla MD Unavailable Unavailable Lyn Chinchilla MD Unavailable Unavailable Lyn Chinchilla MD Unavailable Unavailable Lyn Chinchilla MD Unavailable Unavailable Chinchilla, Valerie Moid MD Unavailable Unavailable Chinchilla, Valerie Moid MD Unavailable Unavailable Chinchilla, Valerie Moid MD Unavailable Unavailable Chinchilla, Valerie Moid MD Unavailable Unavailable Chinchilla, Valerie Moid MD Unavailable Unavailable Chinchilla, Valerie Moid MD Unavailable Unavailable Chinchilla, Valerie Moid MD Unavailable Unavailable Chinchilla, Valerie Moid MD Unavailable Unavailable Chinchilla, Vaelrie Moid MD Unavailable Unavailable Chinchilla, Valerie Moid MD Unavailable Unavailable Chinchilla, Valerie Moid MD Unavailable Unavailable Chinchilla, Valerie Moid MD Unavailable Unavailable Chinchilla, Valerie Moid MD Unavailable Unavailable Chinchilla, Valerie Moid MD Unavailable Unavailable Chinchilla, Valerie Moid MD Unavailable Unavailable Chinchilla, Valerie Moid MD Unavailable Unavailable Chinchilla, Valerie Moid MD Unavailable Unavailable Chinchilla, Valerie Moid MD Unavailable Unavailable Chinchilla, Valerie Moid MD Unavailable Unavailable Chinchilla, Valerie Moid MD Unavailable Unavailable Chinchilla, Valerie Moid MD Unavailable Unavailable Chinchilla, Valerie Moid MD Unavailable Unavailable Chinchilla, Valerie Moid MD Unavailable Unavailable Chinchilla, Valerie Moid MD Unavailable Unavailable Chinchilla, Valerie Moid MD Unavailable Unavailable Chinchilla, Valerie Moid MD Unavailable Unavailable Chinchilla, Valerie Moid MD Unavailable Unavailable Chinchilla, Valerie Moid MD Unavailable Unavailable Chinchilla, Valerie Moid MD Unavailable Unavailable Re-disclosure Warning The records that you are about to access may contain information from federally-assisted alcohol or drug abuse programs. If such information is present, then the following federally mandated warning applies: This information has been disclosed to you from records protected by federal confidentiality rules (42 CFR part 2). The federal rules prohibit you from making any further disclosure of this information unless further disclosure is expressly permitted by the written consent of the person to whom it pertains or as otherwise permitted by 42 CFR part 2. A general authorization for the release of medical or other information is NOT sufficient for this purpose. The Federal rules restrict any use of the information to criminally investigate or prosecute any alcohol or drug abuse patient.The records that you are about to access may contain highly sensitive health information, the redisclosure of which is protected by Article 27-F of the [facility] Public Health law. If you continue you may have access to information: Regarding HIV / AIDS; Provided by facilities licensed or operated by the [facility] Office of Mental Health; or Provided by the [facility] Office for People With Developmental Disabilities. If such information is present, then the following [facility] mandated warning applies: This information has been disclosed to you from confidential records which are protected by state law. State law prohibits you from making any further disclosure of this information without the specific written consent of the person to whom it pertains, or as otherwise permitted by law. Any unauthorized further disclosure in violation of state law may result in a fine or assisted sentence or both. A general authorization for the release of medical or other information is NOT sufficient authorization for further disc losure. Family History Family Member Name Family Member Gender Family Member Status Date o f Status Description Data Source(s) Unknown Female Problem [facility] ([facility]) Encounters Encounter Providers Location Date Indications Data Source(s ) Outpatient Attender: Luc Moralez MD Main Office 02/08/2020 03:30:00 PM EDT [facility] ([facility]) Outpatient Referrer: Mela Chinchilla MD 09/04/2019 10:01:00 AM [facility] Radiology Imaging Medications Medication Brand Name Start Date Product Form Dose Route Admi nistrative Instructions Pharmacy Instructions Status Indications Reaction Description Data Source(s) 88 mcg 06/21/2020 12:00:00 AM EST tablet 90 TAKE ONE TABLET BY MOUTH EVERY DAY TAKE ONE TABLET BY MOUTH EVERY DAY SOLD: 06/24/2020 [facility] 5 mg 06/21/2020 12:00:00 AM EST tablet 90 TAKE ONE TABLET BY MOUTH EVERY DAY TAKE ONE TABLET BY MOUTH EVERY DAY SOLD: 06/24/2020 [facility] pantoprazole 40 MG Delayed Release Oral Tablet PANTOPRAZOLE SODIUM 06/21/2020 12:00:00 AM EST tablet,delayed release (DR/EC) 90 T LOI ONE TABLET BY MOUTH EVERY DAY TAKE ONE TABLET BY MOUTH EVERY DAY SOLD: 06/24/2020 [facility] 17.5-3.13-1.6 gram 03/07/2020 12:00:00 AM EDT [place] 354 USE DIRECTED USE DIRECTED SOLD: 03/07/2020 [facility] Suprep Bowel Prep Kit Suprep Bowel Prep Kit 02/08/2020 12:00:00 AM EDT completed [facility] ([facility]) 40 mg 02/01/2020 12:00:00 AM EDT tablet,delayed release (DR/EC) 90 TAKE ONE TABLET BY MOUTH EVERY DAY TAKE ONE TABLET BY MOUTH EVERY DAY SOLD: 02/05/2020 [facility] 5 mg 02/01/2020 12:00:00 AM EDT tablet 90 TAKE ONE TABLET BY MOUTH EVERY DAY TAKE ONE TABLET BY MOUTH EVERY DAY SOLD: 02/05/2020 [facility] 88 mcg 02/01/2020 12:00:00 AM EDT tablet 90 TAKE ONE TABLET BY MOUTH EVERY DAY TAKE ONE TABLET BY MOUTH EVERY DAY SOLD: 02/05/2020 [facility] 90 mcg/actuation 10/07/2019 12:00:00 AM EDT HFA aerosol inha ler 36 INHALE 2 PUFFS BY MOUTH FOUR TIMES A DAY INHALE 2 PUFFS BY MOUTH FOUR TIMES A DAY SOLD: 10/09/2019 [facility] 160-4.5 mcg/actuation 10/06/2019 12:00:00 AM EDT HFA aerosol inhaler 20 INHALE 2 PUFFS BY MOUTH TWICE DAILY INHALE 2 PUFFS BY MOUTH TWICE DAILY SOLD: 10/09/2019 [facility] 250 mg 10/03/2019 12:00:00 AM EDT tablet 6 TAKE 2 TABLETS BY MOUTH AT ONCE ON DAY 1 THEN TAKE 1 DAILY DAYS 2-5 TAKE 2 TABLETS BY MOUTH AT ONCE ON DAY 1 THEN TAKE 1 DAILY DAYS 2-5 SOLD: 10/05/2019 [facility] 40 mg 09/04/2019 12:00:00 AM EST tablet,delayed release (DR/EC) 90 TAKE 1 TABLET BY MOUTH DAILY TAKE 1 TABLET BY MOUTH DAILY SOLD: 09/04/2019 [facility] 5 mg 09/04/2019 12:00:00 AM EST tablet 90 TAKE 1 TABLET BY MOUTH DAILY TAKE 1 TABLET BY MOUTH DAILY SOLD: 09/04/2019 [facility] 160-4.5 mcg/actuation 09/04/2019 12:00:00 AM EST HFA aerosol inhaler 10 INHALE 1 PUFF BY MOUTH TWICE A DAY INHALE 1 PUFF BY MOUTH TWICE A DAY SOLD: 09/04/2019 [facility] 500 mg 08/24/2019 12:00:00 AM EST tablet 14 TAKE 1 TABLET BY MOUTH TWO TIMES A DAY TAKE 1 TABLET BY MOUTH TWO TIMES A DAY SOLD: 08/24/2019 [facility] 90 mcg/actuation 08/24/2019 12:00:00 AM EST HFA aerosol inha ler 18 INHALE 2 PUFFS BY MOUTH FOUR TIMES A DAY INHALE 2 PUFFS BY MOUTH FOUR TIMES A DAY SOLD: 08/24/2019 [facility] 10 mg 08/24/2019 12:00:00 AM EST tablet 30 TAKE 1 TABLET BY MOUTH THREE TIMES A DAY TAKE 1 TABLET BY MOUTH THREE TIMES A DAY SOLD: 08/24/2019 [facility] 3.5-10,000-1 mg/mL-unit/mL-% 07/06/2019 12:00:00 AM EST drop s,suspension 10 INSTILL 3 DROPS IN RIGHT EAR THREE TIMES A DAY DIRECTED INSTILL 3 DROPS IN RIGHT EAR THREE TIMES A DAY DIRECTED SOLD: 07/10/2019 [facility] Insurance Providers Payer name Policy type / Coverage type Policy ID Covered constitution party ID Covered constitution party's relationship to wolf Policy Wolf Plan Information [place] [id number] SP [id number] SELF PAY ONLY [id number] SP [id number] EXCELLUS BCBS B [id number] S [id number] [place] PPO 302/307 [id number] SP [id number] BC/BS [facility] Healthy Blue Medigap Part B Self BCBS [place] Ppo U/W Commercial Self [place] PPO 302/307 [place] PPO 302/307 Self RIKI GALEN BCBS [place] PPO 302/307 [place] PPO 302/307 [id number] SP [id number] [place] PPO 302/307 [id number] SP [id number] HMO BLUE [id number] SP [id number] Surgeries/Procedures Procedure Description Date Indications Data Source(s) UPPER NDSC BIOPSY SINGLE/MULTIPLE 03/12/2020 12:00:00 AM EDT [facility] ([facility]) COLONOSCOPY W/BIOPSY SINGLE/MULTIPLE 03/12/2020 12:00: 00 AM EDT [facility] ([facility]) Results ID Date Data Source [id number] 07/25/2020 12:00:00 AM EST [facility] Name Value Range Interpretation Code Description Data Delores rce(s) Supporting Document(s) SARS-CoV-2 (COVID-19) RNA [Presence] in Respiratory specimen by ADRIANNA with probe detection Not Detected [facility] This lab was ordered by [facility] and reported by [facility]. ID Date Data Source [id number] 03/12/2020 09:34:00 AM EDT [facility] ([facility]) Name Value Range Interpretation Code Description Data Delores rce(s) Supporting Document(s) Surgical pathology study Laboratory test result [facility] ([facility]) FINAL DIAGNOSIS A-Esophagus, below Z-line, biopsy: Squamocolumnar junction mucosa with chronic inflammation and reparative changes. No intestinal metaplasia seen. B-Sigmoid colon polyp, polypectomy: Hyperplastic polyp. 03/13/2020 - 1037 CLINICAL DIAGNOSIS Heartburn, weight loss, change in bowel habits, H/O colon polyps 03/12/2020 - 1429 GROSS DIAGNOSIS A - Received in formalin labeled "biopsy below Z line R/O Chi's" and consists of a fragment of tissue 0.2 x 0.1 x 0.1 cm. All in one. B - Received in formalin labeled "biopsy polyp sigmoid colon" and consists of a fragment of tissue 0.1 x 0.1 x 0.1 cm. All in one. -OA 03/12/2020 - 1429 Signed LARRY TUCKER MD 03/13/2020 1038 ID Date Data Source [id number] 03/07/2020 11:45:00 AM EDT [facility] Name Value Range Interpretation Code Description Data Delores rce(s) Supporting Document(s) SARS coronavirus 2 RNA [facility] This lab was ordered by [facility] and reported by [facility]. Procedure Vital Signs ID Date Data Source UNK Name Value Range Interpretation Code Description Data Source(s) Body weight 47.628 kg 47.628 kg [facility] ([facility]) Body mass index (BMI) [Ratio] 19.5 kg/m2 19.5 k g/m2 [facility] ([facility]) Heart rate 74 /min 74 /min [facility] ([facility]) Diastolic blood pressure 86 mm[Hg] 86 mm[Hg] [facility] ([facility]) Systolic blood pressure 121 mm[Hg] 121 mm[Hg] M [facility] ([facility]) Body weight 105.00 [lb_av] 105.00 [lb_av] SANDRA T ([facility]) Temp 97.2 Body height 61.5 [in_i] 61.5 [in_i] [facility] 5'1.50"
--- NOTE | 2020-08-16 13:35 | REP ---
INDICATION: syncope COMPARISON: None. TECHNIQUE: PA/Lateral FINDINGS: Lungs: Clear, no infiltrate. Heart: Normal in size. Mediastinum: Mediastinal silhouette unremarkable. Pleural angles: Unremarkable.. Bones and soft tissues: Unremarkable. IMPRESSION: No acute pulmonary disease. <Electronically signed by Cassius Mendosa > 08/16/20 [id number]
[2020-08-16 13:38] LABS: BASO % 0.3 % (0.0-1.0); HEMATOCRIT 42.6 % (36.0-47.0); HEMOGLOBIN 13.5 g/dl (12.0-15.5); LYMPH # 1.5 10^3/uL (1.5-5.0); LYMPH % 40.5 % (24.0-44.0); MEAN CORPUSCULAR HEMOGLOBIN 30.9 pg (27.0-33.0); MEAN CORPUSCULAR HGB CONC 31.7 g/dl (32.0-36.5); MEAN CORPUSCULAR VOLUME 97.5 fl (80.0-96.0); MONO # 0.8 10^3/uL (0.0-0.8); MONO % 20.7 % (0.0-5.0); NEUTROPHILS # 1.4 10^3/uL (1.5-8.5); NEUTROPHILS % 38.2 % (36.0-66.0); PLATELET COUNT, AUTOMATED 222 10^3/uL (150-450); RED BLOOD COUNT 4.37 10^6/uL (4.00-5.40); WHITE BLOOD COUNT 3.6 10^3/uL (4.0-10.0)
--- OUTSIDE RECORDS SUMMARY | 2020-08-16 13:59 | CCD ---
Author Author [facility] Organization [facility] Address Unknown Phone Unavailable Care Team Providers Care Acid Mixer Name Role Phone Terrence Moralez MD Unavailable Unavailable Terernce Moralez MD Unavailable Unavailable Terrence Moralez MD [...] Unavailable Unavailable Lyn Chinchilla MD Unavailable Unavailable yLn Chinchilla MD Unavailable Unavailable Lyn Chinchilla MD [...] is protected by Article 27-F of the [facility] Public Health law. If you continue you may have access to information: Regarding HIV / AIDS; Provided by facilities licensed or operated by the [facility] Office of Mental Health; or Provided by the [facility] Office for People With Developmental Disabilities. If such information is present, then the following [facility] mandated warning applies: This information has been [...] law may result in a fine or halfway sentence or both. A general authorization for [...] Referrer: Mela Chinchilla MD 09/04/2019 10:01:00 AM [facility] Medications Medication Brand Name Start [...] type / Coverage type Policy ID Covered democrat ID Covered democrat's relationship to wolf Policy Wolf Plan Information BC[place] [id number] SP [id number] SELF PAY ONLY [id number] SP [id number] EXCELLUS BCBS B [id number] S [id number] [place] PPO 302/307 [id number] SP [id number] BC/BS Hmo Healthy Blue Medigap Part B Self BCBS [place] Ppo U/W Commercial Self [place] PPO 302/307 [place] 302/307 Self RIKI GALEN [place] PPO 302/307 [place] 302/307 [id number] SP [id number] [place] PPO 302/307 [id number] SP [id number] HMO BLUE [id number] SP [id number] Surgeries/Procedures Procedure Description Date Indications Data Source(s) UPPER NDSC BIOPSY SINGLE/MULTIPLE 03/12/2020 12:00:00 AM EDT [facility] ([facility]) COLONOSCOPY W/BIOPSY SINGLE/MULTIPLE 03/12/2020 12:00: 00 AM EDT [facility] ([facility]) Results ID Date Data Source [id number] 07/25/2020 12:00:00 AM EST [facility] Name Value Range Interpretation Code Description Data Delores rce(s) Supporting Document(s) SARS-CoV-2 (COVID-19) RNA [Presence] in Respiratory specimen by ADRIANNA with probe detection Not Detected [facility] This lab was ordered by [facility] and reported by [email or web address]. ID Date Data Source [id number] 03/12/2020 09:34:00 AM EDT [facility] ([facility]) Name Value Range Interpretation Code Description Data Delores rce(s) Supporting Document(s) Surgical pathology study Laboratory test result [facility] ([facility]) FINAL DIAGNOSIS A-Esophagus, below Z-line, biopsy: Squamocolumnar [...] MD 03/13/2020 1038 ID Date Data Source [id number] 03/07/2020 11:45:00 AM EDT [facility] Name Value Range Interpretation Code Description Data Delores rce(s) Supporting Document(s) SARS coronavirus 2 RNA [facility] This lab was ordered by [facility] and reported by [facility]. Procedure Vital Signs ID Date Data Source UNK Name Value Range Interpretation Code Description Data Source(s) Body weight 47.628 kg 47.628 kg [facility] ([facility]) Body mass index (BMI) [Ratio] 19.5 kg/m2 19.5 k g/m2 [facility] ([facility]) Heart rate 74 /min 74 /min [facility] ([facility]) Diastolic blood pressure 86 mm[Hg] 86 mm[Hg] [facility] ([facility]) Systolic blood pressure 121 mm[Hg] 121 mm[Hg] [facility] Body weight 105.00 [lb_av] 105.00 [lb_av] SANDRA T ([facility]) Temp 97.2 Body height 61.5 [in_i] 61.5 [in_i] KEE[facility] ([facility]) 5'1.50"
[2020-08-16 14:20] LABS: ALBUMIN 3.6 GM/DL (3.2-5.2); ALT/SGPT 23 U/L (12-78); BILIRUBIN,DIRECT 0.1 MG/DL (0.0-0.2); BILIRUBIN,TOTAL 0.7 MG/DL (0.2-1.0); BLOOD UREA NITROGEN 19 MG/DL (7-18); CALCIUM LEVEL 8.7 MG/DL (8.5-10.1); CARBON DIOXIDE LEVEL 25 MEQ/L (21-32); CHLORIDE LEVEL 107 MEQ/L (98-107); CK-MB VALUE MASS < 1.0 NG/ML (<3.6); CPK CREATINE PHOSPHOKINASE 173 U/L (26-192); CREATININE FOR GFR 0.99 MG/DL (0.55-1.30); FREE T4 0.96 NG/DL (0.76-1.46); GLOMERULAR FILTRATION RATE > 60.0 (>51); GLUCOSE, FASTING 70 MG/DL (70-100); MB/CK RELATIVE INDEX 0.58 (< OR =4); POTASSIUM SERUM 4.3 MEQ/L (3.5-5.1); SODIUM LEVEL 140 MEQ/L (136-145); TOTAL PROTEIN 7.3 GM/DL (6.4-8.2); TROPONIN I < 0.02 NG/ML (< 0.10)
[2020-08-16] MEDS ORDERED: NS 1,000 ML IV ONE (14:30)
--- NOTE | 2020-08-16 14:59 | REP ---
INDICATION: fall/trauma. COMPARISON: Comparison head CT study August 23, 2006.. TECHNIQUE: Helical scanning is acquired. 5 mm axial images were reformatted. Coronal MPR images were generated. FINDINGS: Bone window settings demonstrate an intact bony calvarium. There is no evidence of skull fracture or incidental bony calvarial lesion. The visualized paranasal sinuses appear clear. No intraorbital abnormality is seen. On soft tissue window setting images; the lateral, third, and fourth ventricles are normal in size and position. Mendosa-white differentiation pattern is normal above and below the tentorium. There are is no evidence of intracranial hemorrhage. No mass, edema, infarction, or midline shift is seen. No extra-axial fluid collection is appreciated. IMPRESSION: Negative noncontrast head CT. <Electronically signed by Graham Cartagena > 08/16/20 [id number]
--- NOTE | 2020-08-16 15:00 | REP ---
INDICATION: fall/trauma. COMPARISON: None. TECHNIQUE: Helical scanning is acquired and overlapping 2 mm high resolution axial images were generated and reviewed at bone and soft tissue window settings. Coronal and sagittal multiplanar re-formations images are generated. FINDINGS: There is no evidence of cervical spine element fracture. No skull base fracture is seen. Cervical vertebral body heights are preserved. Alignment is normal. Facet joints are normally aligned bilaterally at each cervical level on multiplanar re-formations images. There is no evidence of intraspinal or paraspinal hematoma. No extra vertebral abnormality is seen. Surgical clips are noted bilaterally in the neck status post thyroidectomy. No adenopathy is seen. Advanced emphysematous changes are noted in the lung apices. Minimal degenerative disc disease is present at C4-5 C5-6 and to a lesser extent C6-7. IMPRESSION: Negative CT study of the cervical spine without contrast. No fracture seen. <Electronically signed by Graham Cartagena > 08/16/20 [id number]
--- NOTE | 2020-08-16 15:02 | REP ---
INDICATION: fall/trauma. COMPARISON: NONE. TECHNIQUE: Helical scanning is acquired and 3 mm axial images re-formatted. Coronal MPR images are generated and reviewed. FINDINGS: Five no mandibular fracture is seen. Zygomatic arches are intact. Orbital margins are normal. The the nasal bone and inferior maxillary spine are intact. Orbital and paranasal sinus margins are intact. Bony nasal septum is in the midline. Paranasal sinuses are clear. No intraorbital hematoma is seen. No facial hematoma is appreciated. No skull base fracture is seen. IMPRESSION: No traumatic abnormality noted. <Electronically signed by Graham Cartagena > 08/16/20 [id number]
[2020-08-16] MEDS ORDERED: PANT40TA29 PO (18:00)
[2020-08-16] MEDS: CIPROFLOXACIN 400 MG in IV 1 EA IV SCH (18:51)
[2020-08-16 19:31] LABS: RSV AMPLIFICATION NEGATIVE (NEGATIVE)
--- NOTE | 2020-08-16 20:23 | ECGEPIP ---
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
--- NOTE | 2020-08-16 20:34 | HPEPDOC ---
[facility] Medical History & Physical Date of Admission Aug 16, 2020 Date of Service: Aug 16, 2020 History and Physical CHIEF COMPLAINT: Syncope HISTORY OF PRESENT ILLNESS: 60 year old female presents for several episodes of syncope over the past few days. First episode was related to micturition. She has also had a few other episodes that appear to occur without any particular instigating factor. She denies chest pain, shortness of breath, headaches, changes in vision, abdominal pain or N/V/D. She is a questionable historian. REVIEW OF SYSTEMS: 12 point review of systems negative except as listed in HPI PAST MEDICAL/ SURGICAL HISTORY: Chronic HTN GERD Hiatial hernia. History of thyroid cancer / hypothyroidism History of breast cancer SOCIAL HISTORY: She smoked for 38 years but quit 8 years ago FAMILY HISTORY: Cancer ESRD Hypertension ALLERGIES: Please see below. HOME MEDICATIONS: Please see below. PHYSICAL EXAMINATION: VITAL SIGNS: Please see below. GEN: well nourished / well developed/ NAD INTEGUMENT: She is not flushed, she does not have facial plethora HEENT:NCAT, EOMI CVS: +S1S2, RRR LUNGS: CTA B/L ABDOMEN: soft, NT, +BS Ext: no edema NEURO: CN 2-12 are grossly intact / speech is not dysarthric PSYCH: alert and oriented to person place and time/ able to understand and follow all commands LABORATORY DATA: See below. IMAGING: X-ray appears unremarkable but the final report is pending. CT of the chest has been performed but the report is pending MICROBIOLOGY: Please see below. ASSESSMENT: 59 old female with a history of HTN, GERD, hiatial hernia, thyroid and breast cancer and acquired hypothyroidism who is admitted for evaluation of syncopal episodes, found to have UTI. PLAN: #syncope - telemetry monitoring - check for recent echocardiogram - repeat if no recent echo - check orthostatics #UTI - start levaquin - check cultures - check blood cultures # +COVID-19 - isolation precautions #HTN - continue lisinopril #hypothyroidism - continue oral supplementation #GERD - continue PPI #DVT prophylaxis - mechanical Vital Signs Vital Signs Date Time Temp Pulse Resp B/P (MAP) Pulse Ox O2 Delivery O2 Flow Rate FiO2 08/16/20 16:30 76 123/78 (93) 08/16/20 14:42 95 08/16/20 12:28 98.6 22 Room Air Laboratory Data Labs 24H Laboratory Tests 2 08/16/20 13:28: Immature Granulocyte % (Auto) 0.3, Neutrophils (%) (Auto) 38.2, Lymphocytes (%) (Auto) 40.5, Monocytes (%) (Auto) 20.7H, Eosinophils (%) (Auto) 0.0, Basophils (%) (Auto) 0.3, Neutrophils # (Auto) 1.4L, Lymphocytes # (Auto) 1.5, Monocytes # (Auto) 0.8, Eosinophils # (Auto) 0.0, Basophils # (Auto) 0.0, Nucleated Red Blood Cells % (auto) 0.0, Anion Gap 8, Glomerular Filtration Rate > 60.0, Calciu m Level 8.7, Total Bilirubin 0.7, Direct Bilirubin 0.1, Aspartate Amino Transf (AST/SGOT) 29, Alanine Aminotransferase (ALT/SGPT) 23, Alkaline Phosphatase 66, Total Creatine Kinase 173, Creatine Kinase MB < 1.0, Creatine Kinase MB Relative Index 0.58, Troponin I < 0.02, Total Protein 7.3, Albumin 3.6, Albumin/Globulin Ratio 1.0L, Thyroid Stimulating Hormone (TSH) 7.600H, Free Thyroxine 0.96 08/16/20 17:19: Urine Color ANA LAURA, Urine Appearance CLOUDYH, Urine pH 5.0, Urine Specific [place] 1.029, Urine Protein 1+H, Urine Glucose (UA) NEGATIVE, Urine Ketones 1+H, Urine Blood 2+H, Urine Nitrite NEGATIVE, Urine Bilirubin NEGATIVE, Urine Urobilinogen 0.2, Urine Leukocyte Esterase 2+H, Urine WBC (Auto) 16H, Urine RBC (Auto) 7H, Urine Hyaline Casts (Auto) 0, Urine Bacteria (Auto) 2+H, Urine Squamous Epithelial Cells 13, Urine Mucus (Auto) LARGE, Urine Sperm (Auto) CBC/BMP Laboratory Tests 08/16/20 13:28 Microbiology Microbiology 08/16/20 Urine Culture, Received Pending Home Medications Scheduled Budesonide/Formoterol (Symbicort 160-4.5 Mcg Inhaler) 6 Gm Hfa.aer.ad, 2 PUFF INH DAILY Calcium Carbonate/Vitamin D3 (Calcium 600-Vit D3 400 Tablet) 1 Each Tablet, 3 TAB PO QPM TAKES IN AFTERNOON Cyanocobalamin (Vitamin B-12) (Vitamin B-12) 1,000 Mcg Tablet, 1,000 MCG PO QPM TAKES IN AFTERNOON Levothyroxine Sodium (Levothyroxine Sodium) 88 Mcg Tablet, 88 MCG PO DAILY Lisinopril (Lisinopril) 5 Mg Tablet, 5 MG PO DAILY Scheduled PRN Albuterol Sulfate (Proair Hfa) 8.5 Gm Hfa.aer.ad, 2 PUFF INH for SHORTNESS OF BREATH Pantoprazole Sodium (Pantoprazole Sodium) 40 Mg Tablet.dr, 40 MG PO DAILY PRN for HEARTBURN Allergies Coded Allergies: Penicillins (Verified Allergy, Severe, anaphylaxis, 03/11/20) Sulfa (Sulfonamide Antibiotics) (Verified Allergy, Intermediate, lesions on back of throat, 03/11/20) codeine (Verified Adverse Reaction, Intermediate, HEADACHES, 03/11/20) A-FIB/CHADSVASC A-FIB History Current/History of A-Fib/PAF?: KALI Ulloa MD Aug 16, 2020 17:55
[2020-08-16] MEDS ORDERED: ALBUTEROL 90 MCG/ACT 8GM HFA INHALER INH PRN (20:45)
[2020-08-16] MEDS ORDERED: PANTOPRAZOLE 40MG TAB (PROTONIX) PO PRN (20:45)
[2020-08-16] MEDS ORDERED: ACETAMINOPHEN TAB 650MG DOSE (2X325MG) PO PRN (21:00)
[2020-08-16] MEDS ORDERED: ONDANSETRON 4MG/2ML VIAL IV PRN (21:00)
[2020-08-16 21:46] VITALS: BP_SYST 118; BP_SYST 120; BP_SYST 123; BP_DIAS 65; BP_DIAS 67; BP_DIAS 72
[2020-08-16 23:52] VITALS: BP 106/65
[2020-08-17] VITALS (8 sets, daily range): BP systolic 100–116; BP diastolic 58–74
[2020-08-17] MEDS: CIPROFLOXACIN 400 MG in IV 1 EA IV SCH (06:31)
[2020-08-17] MEDS: LEVOTHYROXINE 88MCG TABLET (0.088 MG) PO SCH (06:32)
[2020-08-17] MEDS ORDERED: SYMBICORT 160/4.5MCG INHALER 6GM INH SCH (08:00)
[2020-08-17] MEDS ORDERED: lisinopriL 5 MG TAB PO SCH ×2 (09:00→21:00)
[2020-08-17 09:24] LABS: HEMATOCRIT 37.3 % (36.0-47.0); HEMOGLOBIN 12.1 g/dl (12.0-15.5); MEAN CORPUSCULAR HEMOGLOBIN 31.7 pg (27.0-33.0); MEAN CORPUSCULAR HGB CONC 32.4 g/dl (32.0-36.5); MEAN CORPUSCULAR VOLUME 97.6 fl (80.0-96.0); PLATELET COUNT, AUTOMATED 197 10^3/uL (150-450); RED BLOOD COUNT 3.82 10^6/uL (4.00-5.40); WHITE BLOOD COUNT 3.1 10^3/uL (4.0-10.0)
[2020-08-17 09:46] LABS: BASO % 0.3 % (0.0-1.0); EOS % 0.3 % (0.0-3.0); LYMPH # 1.5 10^3/uL (1.5-5.0); MONO # 0.5 10^3/uL (0.0-0.8); MONO % 15.4 % (0.0-5.0)
[2020-08-17 09:48] LABS: ALBUMIN 3.2 GM/DL (3.2-5.2); ALT/SGPT 20 U/L (12-78); BILIRUBIN,TOTAL 0.6 MG/DL (0.2-1.0); BLOOD UREA NITROGEN 14 MG/DL (7-18); CARBON DIOXIDE LEVEL 24 MEQ/L (21-32); CHLORIDE LEVEL 107 MEQ/L (98-107); CREATININE FOR GFR 0.79 MG/DL (0.55-1.30); GLOMERULAR FILTRATION RATE > 60.0 (>51); GLUCOSE, FASTING 91 MG/DL (70-100); MAGNESIUM LEVEL 1.8 MG/DL (1.8-2.4); POTASSIUM SERUM 3.6 MEQ/L (3.5-5.1); SODIUM LEVEL 140 MEQ/L (136-145); TOTAL PROTEIN 6.3 GM/DL (6.4-8.2)
--- NOTE | 2020-08-17 13:44 | IPNPDOC ---
Subjective Date Seen The patient was seen on 08/17/20. Objective Physical Examination General Exam: Positive: Alert, Cooperative, No Acute Distress Eye Exam: Positive: PERRLA, Conjunctiva & lids normal, EOMI; Negative: Sclera icteric ENT Exam: Positive: Atraumatic, Mucous membr. moist/pink, Pharynx Normal Neck Exam: Positive: Supple; Negative: JVD, thyromegaly Chest Exam: Positive: Clear to auscultation, Normal air movement Heart Exam: Positive: Rate Normal, Regular Rhythm, Normal S1, Normal S2; Negative: Murmurs, Rubs Abdomen Exam: Positive: Normal bowel sounds, Soft; Negative: Tenderness, Hepatospenomegaly Extremity Exam: Positive: Normal pulses; Negative: Clubbing, Cyanosis, Edema Skin Exam: Positive: Nl turgor and temperature; Negative: Rash, Breakdown Neuro Exam: Positive: Normal Speech, Strength at 5/5 X4 ext Assessment /Plan Assessment 60 old female with a history of HTN, GERD, hiatal hernia, Chronic diarrhea/ stool incontinence > 1 year, thyroid and breast cancer and acquired hypothyroidism who is admitted for evaluation of syncopal episodes, found to have UTI and incidentally COVID positive #Syncope - possibly vasovagal syncope - telemetry monitoring, no arrhythmias - Orthostatic vitals negative - Echo in 2019 noted , no valvular heart disease or pul HTN or cardiac abnormality to explain syncope. #UTI ruled out, Has asymptomatic bacteruria. - Cultures contaminated - cipro stopped - Has urinary and stool incontinence. # +COVID-19 - isolation precautions #HTN - BP low normal will hold lisinopril #hypothyroidism - continue oral supplementation #GERD - continue PPI #Chronic diarrhea/ Stool incontinence - reports has incontinent bowel movements with every urination, and sometimes has stool incontinence without knowledge. - Had EGD and Colonoscopy with Dr Moralez on 03/2020. - Urine contaminated. - Follow up with PMD. #DVT prophylaxis -lovenox VS, I&O, 24H, Fishbone Vital Signs/I&O Vital Signs Date Time Temp Pulse Resp B/P (MAP) Pulse Ox O2 Delivery O2 Flow Rate FiO2 08/17/20 11:47 99.3 76 20 116/67 (83) 96 Room Air I&O- Last 24 Hours up to 6 AM 08/17/20 06:00 Intake Total 1440 ml Output Total 400 ml Balance 1040 ml Laboratory Data 24H LABS Laboratory Tests 2 08/16/20 13:28: Immature Granulocyte % (Auto) 0.3, Neutrophils (%) (Auto) 38.2, Lymphocytes (%) (Auto) 40.5, Monocytes (%) (Auto) 20.7H, Eosinophils (%) (Auto) 0.0, Basophils (%) (Auto) 0.3, Neutrophils # (Auto) 1.4L, Lymphocytes # (Auto) 1.5, Monocytes # (Auto) 0.8, Eosinophils # (Auto) 0.0, Basophils # (Auto) 0.0, Nucleated Red Blood Cells % (auto) 0.0, Anion Gap 8, Glomerular Filtration Rate > 60.0, Calcium Level 8.7, Total Bilirubin 0.7, Direct Bilirubin 0.1, Aspartate Amino Transf (AST/SGOT) 29, Alanine Aminotransferase (ALT/SGPT) 23, Alkaline Phosphatase 66, Total Creatine Kinase 173, Creatine Kinase MB < 1.0, Creatine Kinase MB Relative Index 0.58, Troponin I < 0.02, Total Protein 7.3, Albumin 3.6, Albumin/Globulin Ratio 1.0L, Thyroid Stimulating Hormone (TSH) 7.600H, Free Thyroxine 0.96 08/16/20 17:19: Urine Color ANA LAURA, Urine Appearance CLOUDYH, Urine pH 5.0, Urine Specific [place] 1.029, Urine Protein 1+H, Urine Glucose (UA) NEGATIVE, Urine Ketones 1+H, Urine Blood 2+H, Urine Nitrite NEGATIVE, Urine Bilirubin NEGATIVE, Urine Urobilinogen 0.2, Urine Leukocyte Esterase 2+H, Urine WBC (Auto) 16H, Urine RBC (Auto) 7H, Urine Hyaline Casts (Auto) 0, Urine Bacteria (Auto) 2+H, Urine Squamous Epithelial Cells 13, Urine Mucus (Auto) LARGE, Urine Sperm (Auto) 08/16/20 18:14: Coronavirus (COVID-19)(PCR) POSITIVEA, Influenza Type A (RT-PCR) NEGATIVE, Influenza Type B (RT-PCR) NEGATIVE, Respiratory Syncytial Virus (PCR) NEGATIVE 08/17/20 07:10: Immature Granulocyte % (Auto) 0.0, Neutrophils (%) (Auto) 33.0L, Lymphocytes (%) (Auto) 51.0H, Monocytes (%) (Auto) 15.4H, Eosinophils (%) (Auto) 0.3, Basophils (%) (Auto) 0.3, Neutrophils # (Auto) 1.0L, Lymphocytes # (Auto) 1.5, Monocytes # (Auto) 0.5, Eosinophils # (Auto) 0.0, Basophils # (Auto) 0.0, Nucleated Red Blood Cells % (auto) 0.0, Anion Gap 9, Glomerular Filtration Rate > 60.0, Calcium Level 8.0L, Total Bilirubin 0.6, Aspartate Amino Transf (AST/SGOT) 17, Alanine Aminotransferase (ALT/SGPT) 20, Alkaline Phosphatase 56, Total Protein 6.3L, Albumin 3.2, Albumin/Globulin Ratio 1.0L, Magnesium Level 1.8 CBC/BMP Laboratory Tests 08/16/20 13:28 08/17/20 07:10 Microbiology Microbiology 08/16/20 Blood Culture, Received Pending 08/16/20 Blood Culture, Received Pending 08/16/20 Urine Culture - Final, Complete JASMEET VALERIO MD Aug 17, 2020 13:44
[2020-08-17] MEDS: GASTROGRAFIN SOLUTION 30ML PO SCH ×2 (14:10→14:46)
--- NOTE | 2020-08-17 18:16 | REPVR ---
PROCEDURE INFORMATION: Exam: CT Abdomen And Pelvis Without Contrast Exam date and time: 08/17/2020 4:56 PM Age: 60 years old Clinical indication: Constipation; Additional info: Diarrhea with stool incontinence with urination? Fistula TECHNIQUE: Imaging protocol: Computed tomography of the abdomen and pelvis without contrast. Radiation optimization: All CT scans at this facility use at least one of these dose optimization techniques: automated exposure control; mA and/or kV adjustment per patient size (includes targeted exams where dose is matched to clinical indication); or iterative reconstruction. COMPARISON: No relevant prior studies available. FINDINGS: Lungs: No suspicious mass or airspace process in the visualized lung bases. Pleural spaces: Miniscule dependent bilateral pleural effusions. Liver: Noncontrast liver shows no obvious lesion. Gallbladder and bile ducts: Gallbladder is either contracted or surgically absent. Pancreas: Noncontrast pancreas shows no obvious mass or adjacent fluid. Spleen: Noncontrast spleen shows no obvious focal deformity. Adrenal glands: Adrenal glands are normal in appearance. Kidneys and ureters: Kidneys demonstrate punctate calculi. No obstruction. Possible midpole 2 cm left renal cyst on axial image 34 measuring 11 Hounsfield units. Stomach and bowel: No evidence of small bowel obstruction. Terminal ileum has normal appearance. No evidence of acute diverticulitis. Appendix: Normal caliber appendix is identified, with no adjacent inflammation. Intraperitoneal space: No pneumoperitoneum. Vasculature: Atherosclerotic change present in the aorta, without aneurysm. Lymph nodes: No bulky lymphadenopathy. Urinary bladder: Urinary bladder appears normal. No enteric contrast or air seen within the bladder. Reproductive: Uterus is surgically absent. Bones/joints: Bony structures show no acute fracture or destructive process. Soft tissues: No concerning focal abnormality of the extra-abdominal and pelvic soft tissues. No effacement of normal fat planes in the ischiorectal fossa. Other findings: Evaluation of solid organs is limited without IV contrast. IMPRESSION: 1. No noncontrast CT evidence of a fistula between bowel and bladder, with oral contrast extending to the distal descending colon by the time of the exam. No bladder wall thickening or air. 2. No acute surgical or inflammatory intra-abdominal or pelvic process. 3. Nonobstructive renal calculi Electronically signed by: Everett Rajput On 08/17/2020 18:16:13 PM
[2020-08-17] MEDS: SYMBICORT 160/4.5MCG INHALER 6GM INH SCH (20:39)
[2020-08-18 04:40] VITALS: BP 108/70
[2020-08-18] MEDS: LEVOTHYROXINE 88MCG TABLET (0.088 MG) PO SCH (05:49)
[2020-08-18 05:50] VITALS: BP_SYST 103; BP_SYST 111; BP_SYST 84; BP_DIAS 63; BP_DIAS 66
[2020-08-18 07:37] VITALS: BP 129/75
[2020-08-18] MEDS: SYMBICORT 160/4.5MCG INHALER 6GM INH SCH (07:52)
[2020-08-18] MEDS ORDERED: NS 500 ML IV ONE (08:00)
[2020-08-18 08:09] LABS: BASO % 0.2 % (0.0-1.0); EOS % 0.9 % (0.0-3.0); HEMATOCRIT 38.8 % (36.0-47.0); HEMOGLOBIN 12.7 g/dl (12.0-15.5); LYMPH # 1.2 10^3/uL (1.5-5.0); LYMPH % 26.9 % (24.0-44.0); MEAN CORPUSCULAR HEMOGLOBIN 31.2 pg (27.0-33.0); MEAN CORPUSCULAR HGB CONC 32.7 g/dl (32.0-36.5); MEAN CORPUSCULAR VOLUME 95.3 fl (80.0-96.0); MONO # 0.5 10^3/uL (0.0-0.8); NEUTROPHILS # 2.7 10^3/uL (1.5-8.5); NEUTROPHILS % 59.6 % (36.0-66.0); PLATELET COUNT, AUTOMATED 198 10^3/uL (150-450); RED BLOOD COUNT 4.07 10^6/uL (4.00-5.40); WHITE BLOOD COUNT 4.5 10^3/uL (4.0-10.0)
[2020-08-18 08:28] LABS: BLOOD UREA NITROGEN 14 MG/DL (7-18); CALCIUM LEVEL 8.7 MG/DL (8.5-10.1); CARBON DIOXIDE LEVEL 25 MEQ/L (21-32); CHLORIDE LEVEL 105 MEQ/L (98-107); CREATININE FOR GFR 0.86 MG/DL (0.55-1.30); GLOMERULAR FILTRATION RATE > 60.0 (>51); GLUCOSE, FASTING 95 MG/DL (70-100); POTASSIUM SERUM 3.9 MEQ/L (3.5-5.1); SODIUM LEVEL 140 MEQ/L (136-145)
[2020-08-18] MEDS ORDERED: SYMB16INH INH (11:37)
[2020-08-19] MEDS ORDERED: SYMB16INH INH (18:14)
--- NOTE | 2020-08-20 14:09 | ECHO ---
DATE OF PROCEDURE: 08/18/2020 Age: 60 Gender: Female Height: 61 inches Weight: 100 pounds Body Surface Area: 1.41 m2 Inpatient: [address] [place] [address], room 2109 REFERRING PHYSICIAN: KALI OSEGUERA M.D. INDICATION: Syncope. MEASUREMENTS: 2D Measurements: RV 2.3 cm LV 4.1 cm Septum 0.8 cm Posterior wall 0.8 cm Aortic Root 3.1 cm LA 2.9 cm LVEF 65% Doppler Measurements: AV 1.15 m/s LVOT 0.95 m/s MV-E 73, A 63, E/A ratio 1.2 Early mitral deceleration time 211 ms E prime medial 7.2, A prime medial 6, E prime lateral 9.1 Average E/E prime ratio 9/PCWP - 13 mmHg PV - 0.87 m/s Pulmonary artery acceleration time 120 ms RVSP 28 mmHg IVC 1.7 cm COMMENTS: Normal sinus rhythm without intraventricular conduction disturbance. M-Mode and Two Dimensional Echocardiography was performed with pulse, continuous wave, color flow, and tissue Doppler studies. Normal left ventricular size, wall thickness, and wall motion. Normal left atrial size, Doppler assessment of LV diastolic function, and estimated mean left atrial pressure. Normal right heart chambers sizes, wall motion, and estimated pulmonary arterial pressure. Normal inferior vena cava (IVC) size and collapse against an elevated central venous pressure. Normal aortic dimensions. Normal-appearing aortic valve without stenosis or insufficiency. Normal-appearing mitral valve with trace physiologic insufficiency. Normal-appearing tricuspid valve with very mild physiologic insufficiency. No apparent intracardiac mass or pericardial effusion. No apparent echocardiographic evidence of structural or functional abnormality to account for the patient's syncopal spell. [facility]
--- NOTE | 2020-08-20 22:57 | DS.PDOC ---
Discharge Summary General Date of Admission Aug 16, 2020 at 18:46 Date of Discharge 08/18/20 Discharge Summary PROCEDURES PERFORMED DURING STAY: [None]. DISCHARGE DIAGNOSES: Orthostatic Syncope Asymptomatic COVID-19 Infection Hypothyroid GERD Chronic diarrhea COPD, h/o thyroid CA s/p thyroidectomy hiatal hernia, hx of breast CA, partial mastectomy, COMPLICATIONS/CHIEF COMPLAINT: Syncope. HOSPITAL COURSE: 60 old female with a history of HTN, GERD, hiatal hernia, Chronic diarrhea/ stool incontinence > 1 year, thyroid and breast cancer and acquired hypothyroidism who is admitted for evaluation of syncopal episodes, found to have dirty UA possibly UTI and incidentally COVID positive #Syncope - Orthostatic syncope - telemetry monitoring, no arrhythmias - Orthostatic vitals did come back positive today. - Antihypertensive Medicines stopped. given IVF bolus with improvement. - New Echo did not show any abnormality to explain syncope. Normal EF, normal valves no pulmonary hypertension #UTI ruled out, Has asymptomatic bacteruria. - Cultures contaminated - cipro stopped - Has urinary and stool incontinence. # +COVID-19 - isolation precautions #HTN - BP low normal will hold lisinopril #hypothyroidism - continue oral supplementation #GERD - continue PPI #Chronic diarrhea/ Stool incontinence - reports has incontinent bowel movements with every urination, and sometimes has stool incontinence without knowledge. - Had EGD and Colonoscopy with Dr Moralez on 03/2020. - Urine contaminated. - Follow up with PMD. - CT abd and pelvis negative for any fistula. DISCHARGE MEDICATIONS: Please see below. ALLERGIES: Please see below. PHYSICAL EXAMINATION ON DISCHARGE: VITAL SIGNS: Please see below. General Exam: Positive: Alert, Cooperative, No Acute Distress Eye Exam: Positive: PERRLA, Conjunctiva & lids normal, EOMI; Negative: Sclera icteric ENT Exam: Positive: Atraumatic, Mucous membr. moist/pink, Pharynx Normal Neck Exam: Positive: Supple; Negative: JVD, thyromegaly Chest Exam: Positive: Clear to auscultation, Normal air movement Heart Exam: Positive: Rate Normal, Regular Rhythm, Normal S1, Normal S2; Negative: Murmurs, Rubs Abdomen Exam: Positive: Normal bowel sounds, Soft; Negative: Tenderness, Hepatospenomegaly Extremity Exam: Positive: Normal pulses; Negative: Clubbing, Cyanosis, Edema Skin Exam: Positive: Nl turgor and temperature; Negative: Rash, Breakdown Neuro Exam: Positive: Normal Speech, Strength at 5/5 X4 ext LABORATORY DATA: Please see below. ACTIVITY: [As tolerated]. DIET: Regular DISPOSITION: 01 Home, Self-Care. DISCHARGE INSTRUCTIONS: Follow up PMD in 7 to 10 days DISCHARGE CONDITION: [Stable]. TIME SPENT ON DISCHARGE: 35 minutes. Vital Signs/I&Os Vital Signs Date Time Temp Pulse Resp B/P (MAP) Pulse Ox O2 Delivery O2 Flow Rate FiO2 08/18/20 07:37 98.8 74 19 129/75 (93) 95 Room Air Microbiology Microbiology 08/16/20 Blood Culture - Preliminary, Resulted No Growth after 72 hours. All specime... 08/16/20 Blood Culture - Preliminary, Resulted No Growth after 72 hours. All specime... 08/16/20 Urine Culture - Final, Complete Discharge Medications Scheduled Budesonide/Formoterol (Symbicort 160-4.5 Mcg Inhaler) 6 Gm Hfa.aer.ad, 1 PUFF INH DAILY, (Reported) Calcium Carbonate/Vitamin D3 (Calcium 600-Vit D3 400 Tablet) 1 Each Tablet, 3 TAB PO QPM, (Reported) TAKES IN AFTERNOON Cyanocobalamin (Vitamin B-12) (Vitamin B-12) 1,000 Mcg Tablet, 1,000 MCG PO QPM, (Reported) TAKES IN AFTERNOON Levothyroxine Sodium (Levothyroxine Sodium) 88 Mcg Tablet, 88 MCG PO DAILY, (Reported) Scheduled PRN Albuterol Sulfate (Proair Hfa) 8.5 Gm Hfa.aer.ad, 2 PUFF INH for SHORTNESS OF BREATH, (Reported) Meclizine HCl (Meclizine HCl) 12.5 Mg Tablet, 12.5 MG PO Q6HP PRN for DIZZINESS Pantoprazole Sodium (Pantoprazole Sodium) 40 Mg Tablet.dr, 40 MG PO DAILY PRN for HEARTBURN, (Reported) Allergies Coded Allergies: Penicillins (Verified Allergy, Severe, anaphylaxis, 03/11/20) Sulfa (Sulfonamide Antibiotics) (Verified Allergy, Intermediate, lesions on back of throat, 03/11/20) codeine (Verified Adverse Reaction, Intermediate, HEADACHES, 03/11/20) JASMEET VALERIO MD Aug 20, 2020 22:57
== END 2020-08-18 14:30 | disposition home or self-care (01) | DRG 204 ==
LOC: M ED 12:27 → M ED INP 18:46 → M 4MAIN 21:35
PROVIDERS: ADMIT Internal Medicine; ATTEND Internal Medicine Nephrology
DX: R55 Syncope and collapse (principal); R15.9 Full incontinence of feces; I10 Essential (primary) hypertension; K21.9 Gastro-esophageal reflux disease without esophagitis; K44.9 Diaphragmatic hernia without obstruction or gangrene; K52.9 Noninfective gastroenteritis and colitis, unspecified; J44.9 Chronic obstructive pulmonary disease, unspecified; E89.0 Postprocedural hypothyroidism; Z85.3 Personal history of malignant neoplasm of breast; Z85.850 Personal history of malignant neoplasm of thyroid; Z87.891 Personal history of nicotine dependence; Z79.899 Other long term (current) drug therapy; Z88.0 Allergy status to penicillin; Z88.2 Allergy status to sulfonamides; Z88.5 Allergy status to narcotic agent

== ENCOUNTER 2020-08-19 15:02 | Observation (INO) | payer BC ==
[~2020-08-19] VITALS: Ht 157.5 cm; Wt 45.5 kg
[2020-08-19 17:50] LABS: BASO % 0.5 % (0.0-1.0); HEMATOCRIT 40.8 % (36.0-47.0); HEMOGLOBIN 13.4 g/dl (12.0-15.5); LYMPH % 25.3 % (24.0-44.0); MEAN CORPUSCULAR HEMOGLOBIN 31.5 pg (27.0-33.0); MEAN CORPUSCULAR HGB CONC 32.8 g/dl (32.0-36.5); MEAN CORPUSCULAR VOLUME 95.8 fl (80.0-96.0); MONO # 0.5 10^3/uL (0.0-0.8); MONO % 11.9 % (0.0-5.0); NEUTROPHILS # 2.4 10^3/uL (1.5-8.5); PLATELET COUNT, AUTOMATED 183 10^3/uL (150-450); RED BLOOD COUNT 4.26 10^6/uL (4.00-5.40); WHITE BLOOD COUNT 3.9 10^3/uL (4.0-10.0)
[2020-08-19] MEDS ORDERED: SYMB16INH INH (18:14)
[2020-08-19] MEDS ORDERED: NS 1,000 ML IV ONE (18:15)
[2020-08-19 18:24] LABS: ALBUMIN 3.7 GM/DL (3.2-5.2); ALT/SGPT 23 U/L (12-78); BILIRUBIN,TOTAL 0.8 MG/DL (0.2-1.0); BLOOD UREA NITROGEN 10 MG/DL (7-18); CARBON DIOXIDE LEVEL 24 MEQ/L (21-32); CHLORIDE LEVEL 108 MEQ/L (98-107); CK-MB VALUE MASS < 1.0 NG/ML (<3.6); CPK CREATINE PHOSPHOKINASE 122 U/L (26-192); CREATININE FOR GFR 0.78 MG/DL (0.55-1.30); FERRITIN 231 NG/ML (8-252); GLOMERULAR FILTRATION RATE > 60.0 (>51); GLUCOSE, FASTING 85 MG/DL (70-100); LDH LACTATE DEHYDROGENASE 176 U/L (84-246); MB/CK RELATIVE INDEX 0.82 (< OR =4); POTASSIUM SERUM 3.8 MEQ/L (3.5-5.1); SODIUM LEVEL 142 MEQ/L (136-145); TOTAL PROTEIN 6.9 GM/DL (6.4-8.2); TROPONIN I < 0.02 NG/ML (< 0.10)
[2020-08-19] MEDS ORDERED: ALBUTEROL 90 MCG/ACT 8GM HFA INHALER INH PRN (21:00)
[2020-08-19] MEDS ORDERED: PANTOPRAZOLE 40MG TAB (PROTONIX) PO PRN (21:00)
[2020-08-19] MEDS ORDERED: MECLIZINE 12.5 MG TAB PO PRN (21:00)
[2020-08-19] MEDS ORDERED: ACETAMINOPHEN TAB 650MG DOSE (2X325MG) PO PRN (21:45)
[2020-08-19 22:45] VITALS: BP 121/74
--- NOTE | 2020-08-20 01:41 | HPEPDOC ---
General Date of Admission Aug 19, 2020 Date of Service: Aug 19, 2020 Chief Complaint The patient is a 60-year-old female admitted with a reason for visit of syncope and vertigo Source: Patient History of Present Illness Mrs. Mahoney is a 60 year old female who tested positive for COVID on 08/16/2020 who is here for syncope and vertigo. She was recently admitted on 08/16/2020 and discharged on 08/18/2020. She was feeling well that evening. This morning, she woke up with malaise and fatigue. She got up to stand, but then passed out onto the bed. She does not know how long she was out, but estimated to be about 15 minutes. Afterwards, she started to have vertigo like the room was rocking back and forth on a ship. This vertigo was the first time she has ever felt. It was worse with motion. Symptoms did not improve, so she decided to go to the ED. While in the ED, the vertigo persisted and even felt it while at rest. I performed a Daphne-lainez pike maneuver turning her head to the left and it made her vertigo worse. Otherwise, she also reported a sharp 5/10 chest pain that started when she woke up this morning. It was substernal. It lasts for a short period and then disappears. It has been occurring on and off all day. Not reproducible to touch but sometimes worse with deep breath. Patient will be placed in observation for syncope and vertigo Home Medications Scheduled Budesonide/Formoterol (Symbicort 160-4.5 Mcg Inhaler) 6 Gm Hfa.aer.ad, 1 PUFF INH DAILY, (Reported) Calcium Carbonate/Vitamin D3 (Calcium 600-Vit D3 400 Tablet) 1 Each Tablet, 3 TAB PO QPM, (Reported) TAKES IN AFTERNOON Cyanocobalamin (Vitamin B-12) (Vitamin B-12) 1,000 Mcg Tablet, 1,000 MCG PO QPM, (Reported) TAKES IN AFTERNOON Levothyroxine Sodium (Levothyroxine Sodium) 88 Mcg Tablet, 88 MCG PO DAILY, (Reported) Scheduled PRN Albuterol Sulfate (Proair Hfa) 8.5 Gm Hfa.aer.ad, 2 PUFF INH for SHORTNESS OF BREATH, (Reported) Pantoprazole Sodium (Pantoprazole Sodium) 40 Mg Tablet.dr, 40 MG PO DAILY PRN for HEARTBURN, (Reported) Allergies Coded Allergies: Penicillins (Verified Allergy, Severe, anaphylaxis, 03/11/20) Sulfa (Sulfonamide Antibiotics) (Verified Allergy, Intermediate, lesions on back of throat, 03/11/20) codeine (Verified Adverse Reaction, Intermediate, HEADACHES, 03/11/20) Past Medical History Medical History 1. Hypertension 2. GERD 3. Hiatal hernia 4. History of thyroid cancer 5. Hypothyroidism 6. History of breast cancer 7. COVID positive on 08/16/2020 8. COPD Surgical History 1.Appendectomy 2. Cholecystectomy 3. Right partial mastectomy 4. Tubal ligation 5. Hysterectomy Family History Father: , renal failure Mother: Alive, GI cancer (GIST) Social History * Smoker: former Smoker (Quit 9 years ago, smoked for 39 years about 2ppd) Alcohol: Denies Drugs: denies A-FIB/CHADSVASC A-FIB History Current/History of A-Fib/PAF?: No Review of Systems Constitutional: Reports: Fatigue Eyes: Denies: Vision change ENT: Denies: Sore Throat Skin: Denies: Rash Pulmonary: Reports: Dyspnea, Cough (productive with clear to yellow phelgm), Pleuritic Chest Pain (Occasional) Cardiovascular: Reports: Chest Pain (atypical, sharp chest pain and comes and goes) Gastrointestinal: Denies: Nausea, Abdominal Pain Genitourinary: Denies: Dysuria Hematologic: Denies: Bruising Musculoskeletal: Denies: Muscle Pain Neurological: Reports: Other Symptoms (parethesia in feet, chronic) Psych: Denies: Anxiety, Depression Physical Examination General Exam: Positive: Alert, Cooperative Eye Exam: Positive: EOMI; Negative: Sclera icteric ENT Exam: Positive: Atraumatic Neck Exam: Positive: Supple Chest Exam: Positive: Clear to auscultation; Negative: Rales, Rhonchi, Wheezing Heart Exam: Positive: Rate Normal, Regular Rhythm Abdomen Exam: Positive: Normal bowel sounds, Soft; Negative: Tenderness Extremity Exam: Negative: Edema Neuro Exam: Positive: Cranial Nerves 3-12 NL, Other (Miguel Ángel-lainez pike positive) Psych Exam: Positive: Mental status NL, Mood NL Vital Signs Vital Signs Date Time Temp Pulse Resp B/P (MAP) Pulse Ox O2 Delivery O2 Flow Rate FiO2 08/19/20 18:45 80 18 126/78 (94) 95 Room Air 08/19/20 16:03 99.3 Laboratory Data Labs 24H Laboratory Tests 2 08/19/20 17:00: Immature Granulocyte % (Auto) 0.3, Neutrophils (%) (Auto) 61.0, Lymphocytes (%) (Auto) 25.3, Monocytes (%) (Auto) 11.9H, Eosinophils (%) (Auto) 1.0, Basophils (%) (Auto) 0.5, Neutrophils # (Auto) 2.4, Lymphocytes # (Auto) 1.0L, Monocytes # (Auto) 0.5, Eosinophils # (Auto) 0.0, Basophils # (Auto) 0.0, Nucleated Red Blood Cells % (auto) 0.0, Anion Gap 10, Glomerular Filtration Rate > 60.0, Lact ic Acid Level 1.5, Calcium Level 9.0, Ferritin 231, Total Bilirubin 0.8, Aspartate Amino Transf (AST/SGOT) 20, Alanine Aminotransferase (ALT/SGPT) 23, Alkaline Phosphatase 57, Lactate Dehydrogenase 176, Total Creatine Kinase 122, Creatine Kinase MB < 1.0, Creatine Kinase MB Relative Index 0.82, Troponin I < 0.02, C-Reactive Protein, Quantitative 0.30, Total Protein 6.9, Albumin 3.7, Albumin/Globulin Ratio 1.2 08/19/20 18:15: D-Dimer, Quantitative 680.65H CBC/BMP Laboratory Tests 08/19/20 17:00 Microbiology Microbiology 08/19/20 Blood Culture, Received Pending 08/19/20 Blood Culture, Received Pending Assessment/Plan Mrs. Mahoney is a 60 year old female who tested positive for COVID on 08/16/2020 who is here for syncope and vertigo. She was recently here for syncope. Pending results of echocardiogram from last visit. Will monitor on tele, may need a Holter or Loop recorder on discharge. Otherwise, she has vertigo like rocking on a ship after syncope. Daphne-lainez pike positive. May be BPPV after the fall. Will order physical therapy for evaluation and treatment of BPPV. Otherwise, neuro exam was unremarkable Plan / VTE VTE Prophylaxis Ordered?: Yes Plan Plan 1. Syncope -Echocardiogram done on last admission, pending results -Monitor on Telemetry -Vasovagal vs cardiogenic? May need tilt-table testing or cardiac event monitor on discharge 2. Vertigo -Miguel Ángel-lainez pike positive -BPPV -Physical therapy for vertigo evaluation -Meclizine 3. COVID 19 -Breathing well at room air -Supportive care -Isolation 4. Atypical chest pain -Sharp, may be musculoskeletal in nature -Follow up troponin -Not hypoxic, held off on CT angio. If echocardiogram suggestive of PE (right heart strain), can consider CT angio of chest 5. COPD -Stable, not in exacerbation -Continue budesonide/formoterol and albuterol as needed 6. Hypothyroidism -Continue levothyroxine 7. GERD -Continue protonix 8. DVT ppx -Lovenox MANNY STOVER DO Aug 19, 2020 19:47
[2020-08-20 04:00] VITALS: BP 111/67
[2020-08-20] MEDS ORDERED: LEVOTHYROXINE 88MCG TABLET (0.088 MG) PO SCH (06:00)
[2020-08-20 07:34] LABS: HEMATOCRIT 38.4 % (36.0-47.0); HEMOGLOBIN 12.3 g/dl (12.0-15.5); MEAN CORPUSCULAR VOLUME 96.7 fl (80.0-96.0); PLATELET COUNT, AUTOMATED 176 10^3/uL (150-450); RED BLOOD COUNT 3.97 10^6/uL (4.00-5.40); WHITE BLOOD COUNT 2.3 10^3/uL (4.0-10.0)
--- NOTE | 2020-08-20 07:53 | REP ---
INDICATION: covid/syncope. COMPARISON: Comparison chest x-ray 16 August 2020. TECHNIQUE: Portable upright AP chest radiograph. FINDINGS: The lungs are somewhat hyperinflated. There are some increased interstitial markings in the left lateral pleural angle suggestive of an early infiltrate. heart is not enlarged. Pulmonary vasculature is not increased. Monitoring electrodes are seen. No acute bony abnormality is seen.. IMPRESSION: Suspect early infiltrate left base. Hyperinflation. Otherwise no acute disease.. <Electronically signed by Graham Cartagena > 08/20/20 [id number]
[2020-08-20 08:00] VITALS: BP 127/76
[2020-08-20] MEDS ORDERED: SYMBICORT 160/4.5MCG INHALER 6GM INH SCH (08:00)
[2020-08-20 08:05] LABS: BLOOD UREA NITROGEN 8 MG/DL (7-18); CALCIUM LEVEL 8.4 MG/DL (8.5-10.1); CARBON DIOXIDE LEVEL 26 MEQ/L (21-32); CHLORIDE LEVEL 106 MEQ/L (98-107); CREATININE FOR GFR 0.94 MG/DL (0.55-1.30); GLOMERULAR FILTRATION RATE > 60.0 (>51); GLUCOSE, FASTING 103 MG/DL (70-100); POTASSIUM SERUM 3.5 MEQ/L (3.5-5.1); SODIUM LEVEL 140 MEQ/L (136-145); TROPONIN I < 0.02 NG/ML (< 0.10)
--- NOTE | 2020-08-20 08:54 | ECGEPIP ---
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
[2020-08-20] MEDS ORDERED: ENOXAPARIN 30MG/0.3ML SYRINGE (J1650 PER 10MG) SC SCH (09:00)
[2020-08-20] MEDS ORDERED: ONDANSETRON 4 MG ORAL DISINTEGRATING TAB SL ONE (11:30)
[2020-08-20] MEDS ORDERED: MECL12.590 PO (11:51)
[2020-08-20] MEDS ORDERED: CYANOCOBALAMIN 500 MCG TAB PO SCH (16:00)
--- NOTE | 2020-08-20 18:24 | DS.PDOC ---
Discharge Summary General Date of Admission Aug 19, 2020 at 15:03 Date of Discharge 08/20/20 Attending Physician: DELL OSBORN MD Discharge Summary PROCEDURES PERFORMED DURING STAY: None ADMITTING DIAGNOSES: Syncope Vertigo Covid 19 Atypical chest pain COPD Hypothyroidism GERD DISCHARGE DIAGNOSES: Benign positional vertigo Covid 19 COPD Hypothyroid GERD COMPLICATIONS/CHIEF COMPLAINT: +Covid,Syncope,Vertigo. HISTORY OF PRESENT ILLNESS: Mrs. Mahoney is a 60 year old female who tested positive for COVID on 08/16/2020 who is here for syncope and vertigo. She was recently admitted on 08/16/2020 and discharged on 08/18/2020. She was feeling well that evening. This morning, she woke up with malaise and fatigue. She got up to stand, but then passed out onto the bed. She does not know how long she was out, but estimated to be about 15 minutes. Afterwards, she started to have vertigo like the room was rocking back and forth on a ship. This vertigo was the first time she has ever felt. It was worse with motion. Symptoms did not improve, so she decided to go to the ED. While in the ED, the vertigo persisted and even felt it while at rest. I performed a Cactus-lainez pike maneuver turning her head to the left and it made her vertigo worse. Otherwise, she also reported a sharp 5/10 chest pain that started when she woke up this morning. It was substernal. It lasts for a short period and then disappears. It has been occurring on and off all day. Not reproducible to touch but sometimes worse with deep breath. Patient will be placed in observation for syncope and vertigo HOSPITAL COURSE: Patient was admitted to the hospital overnight for continued observation. Patient's chest pain resolved by morning. Repeat troponins were negative. Mor bettie labs without any acute abnormalities. Blood cultures were negative after 24 hours. Regards to her vertigo, patient was treated with meclizine and Zofran for her nausea. Patient was seen by physical therapy and treated for benign positional vertigo. Patient's vitals remained stable. Patient was discharged home with referral for outpatient physical therapy to continue outpatient management of her vertiginous symptoms. This was discussed with the patient who is in agreement with the discharge plan. DISCHARGE MEDICATIONS: Please see below. ALLERGIES: Please see below. PHYSICAL EXAMINATION ON DISCHARGE: VITAL SIGNS: Please see below. GENERAL: Awake, alert, oriented, found to be seated comfortably in her chair. Cooperative with examination HEENT: NC/AT, EOMI, sclera nonicteric CARDIOVASCULAR EXAMINATION: Regular rate and rhythm without any appreciable murmur RESPIRATORY EXAMINATION: Clear to auscultation bilaterally, fair movement throughout without any wheezes rales or rhonchi ABDOMINAL EXAMINATION: Soft, nontender, nondistended EXTREMITIES: No lower extremity edema or calf tenderness bilaterally. Both radial and posterior tibial pulses 2+ SKIN: No jaundice, skin rashes or lesions NEUROLOGICAL EXAMINATION: No focal neurologic deficits, cranial nerves II through XII grossly intact. PSYCHIATRIC EXAMINATION: Mood affect are appropriate LABORATORY DATA: Please see below. IMAGING: Chest x-ray (08/20/20): Suspect early infiltrate in the left base. Hyperinflation. Otherwise no acute disease. PROGNOSIS: Fair. ACTIVITY: As tolerated DIET: Regular DISPOSITION: Home with home health, outpatient PT Please follow up with outpatient physical therapy as prescribed. Please continue taking medications as prescribed, a new prescription was written for meclizine as needed for dizziness. Please follow-up with your primary care provider once allowed by [facility] isolation protocols. Please return to the emergency department should her symptoms return, or should you experience fever, shortness of breath, difficulty breathing or chest pain. DISCHARGE CONDITION: Stable TIME SPENT ON DISCHARGE: Greater than 32 minutes. Vital Signs/I&Os Vital Signs Date Time Temp Pulse Resp B/P (MAP) Pulse Ox O2 Delivery O2 Flow Rate FiO2 08/20/20 08:00 98.8 80 18 127/76 (93) 94 Room Air I&O- Last 24 Hours up to 6 AM 08/20/20 06:00 Intake Total 1000 ml Output Total 0 ml Balance 1000 ml Laboratory Data Labs 24H Laboratory Tests 2 08/19/20 18:15: D-Dimer, Quantitative 680.65H 08/20/20 07:06: Nucleated Red Blood Cells % (auto) 0.0, Anion Gap 8, Glomerular Filtration Rate > 60.0, Calcium Level 8.4L, Troponin I < 0.02 CBC/BMP Laboratory Tests 08/20/20 07:06 Microbiology Microbiology 08/19/20 Blood Culture - Preliminary, Resulted No growth after 24 hours . All specim... 08/19/20 Blood Culture - Preliminary, Resulted No growth after 24 hours . All specim... Discharge Medications Scheduled Budesonide/Formoterol (Symbicort 160-4.5 Mcg Inhaler) 6 Gm Hfa.aer.ad, 1 PUFF INH DAILY, (Reported) Calcium Carbonate/Vitamin D3 (Calcium 600-Vit D3 400 Tablet) 1 Each Tablet, 3 TAB PO QPM, (Reported) TAKES IN AFTERNOON Cyanocobalamin (Vitamin B-12) (Vitamin B-12) 1,000 Mcg Tablet, 1,000 MCG PO QPM, (Reported) TAKES IN AFTERNOON Levothyroxine Sodium (Levothyroxine Sodium) 88 Mcg Tablet, 88 MCG PO DAILY, (Reported) Scheduled PRN Albuterol Sulfate (Proair Hfa) 8.5 Gm Hfa.aer.ad, 2 PUFF INH for SHORTNESS OF BREATH, (Reported) Meclizine HCl (Meclizine HCl) 12.5 Mg Tablet, 12.5 MG PO Q6HP PRN for DIZZINESS Pantoprazole Sodium (Pantoprazole Sodium) 40 Mg Tablet.dr, 40 MG PO DAILY PRN for HEARTBURN, (Reported) Allergies Coded Allergies: Penicillins (Verified Allergy, Severe, anaphylaxis, 03/11/20) Sulfa (Sulfonamide Antibiotics) (Verified Allergy, Intermediate, lesions on back of throat, 03/11/20) codeine (Verified Adverse Reaction, Intermediate, HEADACHES, 03/11/20) GME ATTESTATION GME ATTESTATION My faculty preceptor for this patient encounter was physically present during the encounter and was fully available. All aspects of the patient interview, examination, medical decision making process, and medical care plan development were reviewed and approved by the faculty preceptor. The faculty preceptor is aware and concurs with the plan as stated in the body of this note and will attest to such by his/her cosignature. ATTENDING NOTE I, Dell Osborn MD, have independently examined this patient and performed my own physical exam, as well as reviewed the documentation and edited where necessary. I have discussed in detail with the resident / student the findings and plan of treatment as documented by the resident / student and edited their note. I agree with their findings and treatment plan and have edited their documentation. KENDRA DOOLEY DO Aug 20, 2020 18:24 DELL OSBORN MD Aug 23, 2020 14:16
== END 2020-08-20 15:15 | disposition home health service (06) ==
LOC: M ED 15:02 → M ED INP 15:03 → M 4MAIN 22:53
PROVIDERS: ADMIT Internal Medicine; ATTEND Internal Medicine
DX: R55 Syncope and collapse (principal); R42 Dizziness and giddiness; U07.1 COVID-19; R07.89 Other chest pain; J44.9 Chronic obstructive pulmonary disease, unspecified; E03.9 Hypothyroidism, unspecified; K21.9 Gastro-esophageal reflux disease without esophagitis; Z79.899 Other long term (current) drug therapy; Z88.0 Allergy status to penicillin; Z88.2 Allergy status to sulfonamides; Z88.5 Allergy status to narcotic agent; Z87.891 Personal history of nicotine dependence
CPT/HCPCS: 36415; 71045; 80048; 80053; 82550; 82553; 82728; 83605; 83615; 85025; 85027; 85379; 86140; 87040; 93005; 96360; 96372; 97112; 97161; 97530; 99285; J1650; Q0162

== ENCOUNTER 2020-12-12 15:00 | Emergency (ER) | payer BC ==
[~2020-12-12] VITALS: Ht 154.9 cm; Wt 44.5 kg
[~2020-12-12 15:00] MED LIST changes: +MECL-136 PO
--- NOTE | 2020-12-12 16:20 | REP ---
INDICATION: CHEST PAIN COMPARISON: 08/19/2020 TECHNIQUE: Portable AP view of the chest FINDINGS: The mediastinum and cardiac silhouette are stable and within normal limits for portable technique. The lung andre demonstrate subtle opacity at the right base which may reflect small acute pneumonia/atelectasis. Skeletal structures are intact. IMPRESSION: Small area of opacity at the right base. Clinical correlation and follow-up to resolution is recommended. <Electronically signed by Alireza Kraft > 12/12/20 [id number]
[2020-12-12 16:23] LABS: BASO % 0.5 % (0.0-1.0); EOS # 0.1 10^3/uL (0.0-0.5); EOS % 1.7 % (0.0-3.0); HEMATOCRIT 42.3 % (36.0-47.0); HEMOGLOBIN 13.8 g/dl (12.0-15.5); LYMPH # 1.3 10^3/uL (1.5-5.0); MEAN CORPUSCULAR HEMOGLOBIN 31.7 pg (27.0-33.0); MEAN CORPUSCULAR HGB CONC 32.6 g/dl (32.0-36.5); MEAN CORPUSCULAR VOLUME 97.2 fl (80.0-96.0); MONO # 0.8 10^3/uL (0.0-0.8); MONO % 13.4 % (2.0-8.0); NEUTROPHILS # 3.8 10^3/uL (1.5-8.5); NEUTROPHILS % 63.1 % (36.0-66.0); PLATELET COUNT, AUTOMATED 293 10^3/uL (150-450); RED BLOOD COUNT 4.35 10^6/uL (4.00-5.40)
[2020-12-12 16:48] LABS: ALBUMIN 3.7 GM/DL (3.2-5.2); ALT/SGPT 21 U/L (12-78); BILIRUBIN,DIRECT 0.3 MG/DL (0.0-0.2); BLOOD UREA NITROGEN 13 MG/DL (7-18); CALCIUM LEVEL 8.8 MG/DL (8.5-10.1); CARBON DIOXIDE LEVEL 28 MEQ/L (21-32); CHLORIDE LEVEL 106 MEQ/L (98-107); CK-MB VALUE MASS < 1.0 NG/ML (<3.6); CPK CREATINE PHOSPHOKINASE 118 U/L (26-192); CREATININE FOR GFR 0.75 MG/DL (0.55-1.30); GLOMERULAR FILTRATION RATE > 60.0 (>51); GLUCOSE, FASTING 82 MG/DL (70-100); LIPASE 168 U/L (73-393); MB/CK RELATIVE INDEX 0.85 (< OR =4); POTASSIUM SERUM 4.3 MEQ/L (3.5-5.1); SODIUM LEVEL 140 MEQ/L (136-145); TOTAL PROTEIN 7.3 GM/DL (6.4-8.2); TROPONIN I < 0.02 NG/ML (< 0.10)
[2020-12-12] MEDS ORDERED: ASPI81TA26 PO (18:07)
[2020-12-12] MEDS ORDERED: ISOVUE-370 76% 100ML VIAL As Ordered ONE (18:44)
[2020-12-12 19:53] LABS: CK-MB VALUE MASS < 1.0 NG/ML (<3.6); CPK CREATINE PHOSPHOKINASE 127 U/L (26-192); MB/CK RELATIVE INDEX 0.79 (< OR =4); TROPONIN I < 0.02 NG/ML (< 0.10)
--- NOTE | 2020-12-12 20:05 | REPVR ---
PROCEDURE INFORMATION: Exam: CTA Chest With Contrast Exam date and time: 12/12/2020 7:07 PM Age: 60 years old Clinical indication: Pain; Other: Pleuritic; Additional info: Pleuritic cp TECHNIQUE: Imaging protocol: Computed tomographic angiography of the chest with contrast. 3D rendering (Not supervised by radiologist): MIP and/or 3D reconstructed images were created by the technologist. Radiation optimization: All CT scans at this facility use at least one of these dose optimization techniques: automated exposure control; mA and/or kV adjustment per patient size (includes targeted exams where dose is matched to clinical indication); or iterative reconstruction. Contrast material: ISOVUE 370; Contrast volume: 75 ml; Contrast route: INTRAVENOUS (IV); COMPARISON: CT ANGIO CHEST 08/21/2019 5:59 AM FINDINGS: Pulmonary arteries: No evidence of pulmonary artery emboli. Aorta: No evidence of thoracic aortic aneurysm or dissection. Lungs: There is centrilobular emphysema , more extensive in the upper lobes particularly on the right. There are bullae in the right upper lobe. There is right apical fibrosis . This is stable compared with the prior scan. Pleural spaces: Unremarkable. No pneumothorax. No pleural effusion. Heart: Unremarkable. No cardiomegaly. No pericardial effusion. Lymph nodes: Unremarkable. No enlarged lymph nodes. Bones/joints: Unremarkable. No acute fracture. Soft tissues: Unremarkable. IMPRESSION: 1. No evidence of pulmonary artery emboli. 2. COPD. No acute pulmonary findings. Electronically signed by: Sawyer Samson On 12/12/2020 20:05:27 PM
--- NOTE | 2020-12-12 20:06 | ECGEPIP ---
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
--- NOTE | 2020-12-12 20:21 | ECGEPIP ---
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
[2020-12-12 21:31] VITALS: BP 131/84
--- NOTE | 2020-12-14 07:55 | ED PDOC ---
Post-Departure Follow-Up dr crawford faxed formal report of cxr for fu Brittny Saunders MD Dec 14, 2020 07:55
== END 2020-12-12 21:54 | disposition home or self-care (01) ==
LOC: M ED 15:00
DX: R07.89 Other chest pain (principal); G62.9 Polyneuropathy, unspecified; S63.253A Unspecified dislocation of left middle finger, initial encounter; X58.XXXA Exposure to other specified factors, initial encounter; Y92.89 Other specified places as the place of occurrence of the external cause; I10 Essential (primary) hypertension; J44.9 Chronic obstructive pulmonary disease, unspecified; K21.9 Gastro-esophageal reflux disease without esophagitis; Z85.3 Personal history of malignant neoplasm of breast; Z85.850 Personal history of malignant neoplasm of thyroid; Z79.899 Other long term (current) drug therapy; Z79.890 Hormone replacement therapy; Z79.82 Long term (current) use of aspirin; Z88.0 Allergy status to penicillin; Z88.1 Allergy status to other antibiotic agents; Z88.2 Allergy status to sulfonamides; Z88.5 Allergy status to narcotic agent; Z87.891 Personal history of nicotine dependence
CPT/HCPCS: 36415; 71045; 71275; 80048; 80076; 82550; 82553; 83690; 85025; 93005; 93041; 94760; 99285; Q9967

== ENCOUNTER 2021-01-29 21:11 | Emergency (ER) | payer BC ==
[~2021-01-29] VITALS: Ht 154.9 cm; Wt 49.1 kg
[~2021-01-29 21:11] MED LIST changes: +ASPI81TA26 PO
[2021-01-30] MEDS ORDERED: NS 1,000 ML IV ONE (01:45)
[2021-01-30] MEDS ORDERED: PERCOCET 5MG/325MG TAB PO ONE (01:50)
[2021-01-30] MEDS ORDERED: valACYclovir HCL 500 MG TAB PO ONE (01:50)
[2021-01-30] MEDS ORDERED: predniSONE 20 MG TAB PO ONE (01:50)
[2021-01-30 02:20] LABS: BASO % 0.4 % (0.0-1.0); EOS # 0.1 10^3/uL (0.0-0.5); EOS % 1.3 % (0.0-3.0); HEMATOCRIT 47.3 % (36.0-47.0); HEMOGLOBIN 15.4 g/dl (12.0-15.5); LYMPH # 1.5 10^3/uL (1.5-5.0); LYMPH % 19.2 % (24.0-44.0); MEAN CORPUSCULAR HEMOGLOBIN 31.4 pg (27.0-33.0); MEAN CORPUSCULAR HGB CONC 32.6 g/dl (32.0-36.5); MEAN CORPUSCULAR VOLUME 96.5 fl (80.0-96.0); MONO # 1.1 10^3/uL (0.0-0.8); MONO % 14.4 % (2.0-8.0); NEUTROPHILS # 5.1 10^3/uL (1.5-8.5); NEUTROPHILS % 64.3 % (36.0-66.0); PLATELET COUNT, AUTOMATED 328 10^3/uL (150-450); WHITE BLOOD COUNT 7.9 10^3/uL (4.0-10.0)
[2021-01-30 02:48] LABS: ALBUMIN 3.7 GM/DL (3.2-5.2); ALT/SGPT 29 U/L (12-78); BILIRUBIN,DIRECT 0.2 MG/DL (0.0-0.2); BILIRUBIN,TOTAL 0.9 MG/DL (0.2-1.0); BLOOD UREA NITROGEN 13 MG/DL (7-18); CALCIUM LEVEL 8.6 MG/DL (8.8-10.2); CARBON DIOXIDE LEVEL 29 MEQ/L (21-32); CHLORIDE LEVEL 107 MEQ/L (98-107); CK-MB VALUE MASS < 1.0 NG/ML (<3.6); CPK CREATINE PHOSPHOKINASE 112 U/L (26-192); GLOMERULAR FILTRATION RATE > 60.0 (>45); GLUCOSE, FASTING 82 MG/DL (70-100); LIPASE 88 U/L (73-393); MB/CK RELATIVE INDEX 0.89 (< OR =4); POTASSIUM SERUM 4.2 MEQ/L (3.5-5.1); SODIUM LEVEL 143 MEQ/L (136-145); TOTAL PROTEIN 7.4 GM/DL (6.4-8.2); TROPONIN I < 0.02 NG/ML (< 0.10)
[2021-01-30] MEDS ORDERED: ONDANSETRON 4MG/2ML VIAL IV ONE (03:50)
--- NOTE | 2021-01-30 05:56 | REPVR ---
PROCEDURE INFORMATION: Exam: CT Abdomen And Pelvis Without Contrast Exam date and time: 01/30/2021 3:49 AM Age: 61 years old Clinical indication: Abdominal pain; Flank; Right; Additional info: Right flank pain, hematuria TECHNIQUE: Imaging protocol: Computed tomography of the abdomen and pelvis without contrast. Radiation optimization: All CT scans at this facility use at least one of these dose optimization techniques: automated exposure control; mA and/or kV adjustment per patient size (includes targeted exams where dose is matched to clinical indication); or iterative reconstruction. COMPARISON: CT ABD/PEL W/PO CONTRAST ONLY 08/17/2020 4:57 PM FINDINGS: Liver: Normal. No mass. Gallbladder and bile ducts: The gallbladder is not visualized. Slight accentuation of extrahepatic bile ducts may be on the basis of cholecystectomy. Pancreas: Normal. No ductal dilation. Spleen: Normal. No splenomegaly. Adrenal glands: Normal. No mass. Kidneys and ureters: Most likely cortical or medullary calcification right kidney. 0.5 cm hyperattenuating area cortex of the left kidney could reflect homogeneous calcification versus partially calcific or hemorrhagic cyst. Hypodense area within the lower left kidney measures 1.7 cm and is stable probably reflecting cyst. No hydronephrosis. No ureterectasis or ureteral calculus. Stomach and bowel: Diffuse fluid-filled small bowel and partial fluid expansion of portions of the colon. Few segments suggesting mucosal edema or spiculation of small bowel. The cecum is position in the pelvis. Appendix: The appendix is not definitely visualized. Intraperitoneal space: Unremarkable. No free air. No significant fluid collection. Vasculature: Ectasia of distal thoracic aorta a stable in diameter. Lymph nodes: Unremarkable. No enlarged lymph nodes. Urinary bladder: Unremarkable as visualized. Reproductive: Postoperative hysterectomy. Bones/joints: Degenerative change of the spine. Soft tissues: Unremarkable. IMPRESSION: 1. Fluid-filled small bowel with questionable mucosal edema or spiculation of few small bowel segments and partial fluid-filled colon. Correlate for any symptoms enteritis/colitis or diarrheal condition. 2. Similar low attenuating area left kidney is suspicious for cyst. No follow-up is required. 3. Areas of calcification within the cortex of both kidneys are stable as described above. 4. Nonvisualization of the gallbladder probably reflecting prior cholecystectomy. 5. Slight accentuation of extrahepatic bile ducts. This finding may be on the basis of cholecystectomy. Correlate clinically for any biliary obstruction signs or symptoms. COMMENTS: Consistent with the [employer]'s Incidental Findings Committee white paper (J Am Katy Radiol 2018): Any incidental renal lesion less than 1 cm or classified as too small to characterize, or any incidental cystic renal lesion characterized as simple-appearing, is likely benign. No follow-up imaging is recommended for these lesions per consensus recommendations based on imaging criteria. Electronically signed by: Jessika Bermeo On 01/30/2021 05:56:14 AM
[2021-01-30] MEDS ORDERED: HYDR-3713 PO (06:11)
[2021-01-30] MEDS ORDERED: LIDO5DIS41 TD (06:11)
[2021-01-30] MEDS ORDERED: VALA1TAB5 PO (06:11)
[2021-01-30] MEDS ORDERED: PRED10TA2 PO (06:11)
--- NOTE | 2021-01-30 06:38 | ECGEPIP ---
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
[2021-01-30 06:45] VITALS: BP 100/57
--- NOTE | 2021-02-02 15:09 | ED PDOC ---
Post-Departure Follow-Up radiology report faxed to Debra Liz MD Feb 02, 2021 15:09
== END 2021-01-30 06:52 | disposition home or self-care (01) ==
LOC: M ED 21:11
DX: B02.9 Zoster without complications (principal); I10 Essential (primary) hypertension; J44.9 Chronic obstructive pulmonary disease, unspecified; K21.9 Gastro-esophageal reflux disease without esophagitis; K44.9 Diaphragmatic hernia without obstruction or gangrene; E03.9 Hypothyroidism, unspecified; Z86.16 Personal history of COVID-19; Z87.891 Personal history of nicotine dependence
CPT/HCPCS: 74176; 80048; 80076; 81001; 82550; 82553; 83690; 85025; 87040; 93005; 93041; 96374; 99285; J2405; J7512

== ENCOUNTER → 2021-02-25 | Outpatient (CLI) | payer BC ==
[~2021-02-25] MED LIST changes: +HYDR-3713 PO; +LIDO5DIS41 TD; +PRED10TA2 PO; +VALA1TAB5 PO
--- NOTE | 2021-02-25 21:47 | REP ---
INDICATION: COPD COMPARISON: 12/12/2020 TECHNIQUE: PA and lateral. FINDINGS: Mediastinum and cardiac silhouette are normal. Stable chronic bilateral pleuroparenchymal changes consistent with given history of COPD/emphysematous disease. No acute consolidation, effusion, or pneumothorax. Skeletal structures are age-appropriate. IMPRESSION: Chronic stable changes consistent with COPD/emphysematous. <Electronically signed by Alireza Kraft > 02/25/21 [id number]
== END ==
LOC: M RAD 18:37
PROVIDERS: ATTEND Family Medicine
DX: J44.9 Chronic obstructive pulmonary disease, unspecified (principal)

== ENCOUNTER 2021-04-30 15:46 | Emergency (ER) | payer BC ==
--- OUTSIDE RECORDS SUMMARY | 2021-04-30 15:52 | CCD ---
Author Author [facility] Organization [facility] Address Unknown Phone Unavailable Support Name Relationship Address Phone YUNG AARON Next Of Kin [address] [place] [address] VONSAFLAKOPRISCILA Next Of Kin [address] [place] [address] GALENPhillip CROSS Next Of Kin [address] [place] [address] YUNG AARON ECON [address] [place] [address] Unavailable Re-disclosure Warning The records that you [...] is protected by Article 27-F of the [facility] Public Health law. If you continue you may have access to information: Regarding HIV / AIDS; Provided by facilities licensed or operated by the [facility] Office of Mental Health; or Provided by the [facility] Office for People With Developmental Disabilities. If such information is present, then the following [facility] mandated warning applies: This information has [...] law may result in a fine or intermediate sentence or both. A general authorization for the release of medical or other information is NOT sufficient authorization for further disc losure. Family History Family Member Name Family Member Gender Family Member Status Date o f Status Description Data Source(s) Unknown Female Problem [facility] ([facility]) Immunizations Vaccine Date Status Description Data Source(s) COVID-19 VACCINE Moderna 10/28/2020 12:00:00 AM EDT completed [facility] Vaccine Series Complete: YESThis Data wa s Submitted to [facility] Via [facility]. COVID-19 VACCINE Moderna 09/12/2020 12:00:00 AM EST completed [facility] Vaccine Series Complete: NOThis Data was Submitted to [facility] Via [facility]Ask. Medications Medication Brand Name Start Date Product Form Dose Route Admi nistrative Instructions Pharmacy Instructions Status Indications Reaction Description Data Source(s) 2.5 mg 04/24/2021 12:00:00 AM EDT tablet 90 TAKE ONE TABLET BY MOUTH EVERY DAY TAKE ONE TABLET BY MOUTH EVERY DAY SOLD: 04/28/2021 [facility] 88 mcg 04/24/2021 12:00:00 AM EDT tablet 90 TAKE ONE TABLET BY MOUTH EVERY DAY TAKE ONE TABLET BY MOUTH EVERY DAY SOLD: 04/28/2021 [facility] 88 mcg 01/30/2021 12:00:00 AM EDT tablet 90 TAKE ONE TABLET BY MOUTH EVERY DAY TAKE ONE TABLET BY MOUTH EVERY DAY SOLD: 01/30/2021 [facility] Acetaminophen 325 MG / Hydrocodone Bitartrate 5 MG Ora l Tablet 5-325 mg HYDROCODONE/ACETAMINOPHEN 01/30/2021 12:00:00 AM EDT tablet 20 TAKE 1 TABLET BY MOUTH EVERY 6 HOURS NEEDED FOR PAIN MAX DAILY DOSE = 4 TABLETS TAKE 1 TABLET BY MOUTH EVERY 6 HOURS NEEDED FOR PAIN MAX DAILY DOSE = 4 TABLETS SOLD: 01/30/2021 [facility] 2.5 mg 01/30/2021 12:00:00 AM EDT tablet 90 TAKE ONE TABLET BY MOUTH EVERY DAY TAKE ONE TABLET BY MOUTH EVERY DAY SOLD: 01/30/2021 [facility] valacyclovir 1000 MG Oral Tablet VALACYCLOVIR HCL 01/30/2021 12: 00:00 AM EDT tablet 21 TAKE ONE TABLET BY MOUTH THREE T IMES A DAY FOR 7 DAYS TAKE ONE TABLET BY MOUTH THREE TIMES A DAY FOR 7 DAYS SOLD: 01/30/2021 [facility] 5 % 01/30/2021 12:00:00 AM EDT adhesive patch,medicate d 5 APPLY 1 PATCH DAILY TO AREA OF PAIN, REMOVE AFTER 12 HOURS APPLY 1 PATCH DAILY TO AREA OF PAIN, REMOVE AFTER 12 HOURS SOLD: 01/30/2021 [facility] 10 mg 01/30/2021 12:00:00 AM EDT tablet 70 TAKE 3 TABLETS BY MOUTH 2X/DAY FOR 7 DAYS THEN 1 & 1/2 TABLETS 2X/DAY FOR 7 DAYS THEN 1/2 TABLET 2X/DAY FOR 7 DAYS TAKE 3 TABLETS BY MOUTH 2X/DAY FOR 7 DAY S THEN 1 & 1/2 TABLETS 2X/DAY FOR 7 DAYS THEN 1/2 TABLET 2X/DAY FOR 7 DAYS SOLD: 01/30/2021 [facility] 250 mg 12/19/2020 12:00:00 AM EDT tablet 6 TAKE TWO TABLETS BY MOUTH AT ONCE ON THE FIRST DAY THEN TAKE ONE DAILY THEREAFTER TAKE TWO TABLETS BY MOUTH AT ONCE ON THE FIRST DAY THEN TAKE ONE DAILY THEREAFTER SOLD: 12/20/2020 [facility] 10 mg 12/19/2020 12:00:00 AM EDT tablet 21 TAKE ONE TABLET BY MOUTH THREE TIMES A DAY TAKE ONE TABLET BY MOUTH THREE TIMES A DAY SOLD: 12/20/2020 [facility] 81 mg 12/13/2020 12:00:00 AM EDT tablet,delayed release (DR/EC) 30 TAKE ONE TABLET BY MOUTH EVERY DAY TAKE ONE TABLET BY MOUTH EVERY DAY SOLD: 12/15/2020 [facility] pantoprazole 40 MG Delayed Release Oral Tablet PANTOPRAZOLE SODIUM 10/31/2020 12:00:00 AM EDT tablet,delayed release (DR/EC) 90 T LOI ONE TABLET BY MOUTH ONCE DAILY TAKE ONE TABLET BY MOUTH ONCE DAILY SOLD: 11/07/2020 [facility] 160-4.5 mcg/actuation 10/31/2020 12:00:00 AM EDT HFA aerosol inhaler 20 INHALE TWO PUFFS BY MOUTH TWICE A DAY INHALE TWO PUFFS BY MOUTH TWICE A DAY SOLD: 03/10/2021 [facility] 88 mcg 10/31/2020 12:00:00 AM EDT tablet 90 TAKE ONE TABLET BY MOUTH EVERY DAY TAKE ONE TABLET BY MOUTH EVERY DAY SOLD: 11/07/2020 [facility] 160-4.5 mcg/actuation 10/31/2020 12:00:00 AM EDT HFA aerosol inhaler 20 INHALE TWO PUFFS BY MOUTH TWICE A DAY INHALE TWO PUFFS BY MOUTH TWICE A DAY SOLD: 01/08/2021 [facility] 160-4.5 mcg/actuation 10/31/2020 12:00:00 AM EDT HFA aerosol inhaler 20 INHALE TWO PUFFS BY MOUTH TWICE A DAY INHALE TWO PUFFS BY MOUTH TWICE A DAY SOLD: 11/07/2020 [facility] 12.5 mg 08/20/2020 12:00:00 AM EST tablet 20 TAKE ONE TABLET BY MOUTH EVERY 6 HOURS NEEDED FOR DIZZINESS TAKE ONE TABLET BY MOUTH EVERY 6 HOURS A S NEEDED FOR DIZZINESS SOLD: 08/25/2020 [facility] 160-4.5 mcg/actuation 08/18/2020 12:00:00 AM EST HFA aerosol inhaler 10 INHALE 2 PUFFS BY MOUTH TWO TIMES A DAY INHALE 2 PUFFS BY MOUTH TWO TIMES A DAY SOLD: 08/25/2020 [facility] pantoprazole 40 MG Delayed Release Oral Tablet PANTOPRAZOLE SODIUM 06/21/2020 12:00:00 AM EST tablet,delayed release (DR/EC) 90 T LOI ONE TABLET BY MOUTH EVERY DAY TAKE ONE TABLET BY MOUTH EVERY DAY SOLD: 06/24/2020 [facility] 88 mcg 06/21/2020 12:00:00 AM EST tablet 90 TAKE ONE TABLET BY MOUTH EVERY DAY TAKE ONE TABLET BY MOUTH EVERY DAY SOLD: 06/24/2020 [facility] 5 mg 06/21/2020 12:00:00 AM EST tablet 90 TAKE ONE TABLET BY MOUTH EVERY DAY TAKE ONE TABLET BY MOUTH EVERY DAY SOLD: 06/24/2020 [facility] 17.5-3.13-1.6 gram 03/07/2020 12:00:00 AM EDT [place] 354 USE DIRECTED USE DIRECTED SOLD: 03/07/2020 [facility] Insurance Providers Payer name Policy type / Coverage type Policy ID Covered libertarian ID Covered libertarian's relationship to kelsey Policy Kelsey Plan Information [id number] [place]/307 [id number] SP [id number] HMO BLUE [id number] SP [id number] [facility]BS [facility] [place] [id number] SP [id number] [place]/307 [id number] SP [id number] [place]/307 [place]/307 [id number] Self RIKI AARON [place]/307 [place]/307 [id number] SP [id number] BC/BS Hmo Healthy Blue Medigap Part B [id number] Self [employer]CELL[employer] BCBS B [id number] S [id number] SELF PAY ONLY [id number] SP [id number] BCBS Excell[employer] Ppo U/W Commercial [id number] Self Problems, Conditions, and Diagnoses No Information Surgeries/Procedures Procedure Description Date Indications Data Source(s) UPPER NDSC BIOPSY SINGLE/MULTIPLE 03/12/2020 12:00:00 AM EDT [facility] ([facility]) COLONOSCOPY W/BIOPSY SINGLE/MULTIPLE 03/12/2020 12:00: 00 AM EDT [facility] ([facility]) Results ID Date Data Source [id number] 08/16/2020 06:14:00 PM EST [facility] Name Value Range Interpretation Code Description Data Delores rce(s) Supporting Document(s) SARS coronavirus 2 RNA [Presence] in Res piratory specimen by ADRIANNA with probe detection POSITIVE [facility] This lab was ordered by [facility] a nd reported by [facility]. ID Date Data Source [id number] 07/25/2020 12:00:00 AM EST [facility] Name Value Range Interpretation Code Description Data Delores rce(s) Supporting Document(s) SARS-CoV-2 (COVID-19) RNA [Presence] in Respiratory specimen by ADRIANNA with probe detection Not Detected [facility] This lab was ordered by [facility] and reported by [facility]. ID Date Data Source [id number] 03/12/2020 09:34:00 AM EDT [facility] ([facility]) Name Value Range Interpretation Code Description Data Delores rce(s) Supporting Document(s) Surgical pathology study Laboratory test result [facility] ([facility]) FINAL DIAGNOSIS A-Esophagus, below Z-line, [...] MD 03/13/2020 1038 ID Date Data Source [id number] 03/07/2020 11:45:00 AM EDT [facility] Name Value Range Interpretation Code Description Data Delores rce(s) Supporting Document(s) SARS coronavirus 2 RNA [facility] This lab was ordered by [facility] and reported by [facility]. Procedure Social History No Information
[2021-04-30] MEDS ORDERED: LISI2.5T9 PO (16:45)
[2021-04-30 16:54] LABS: BASO # 0.1 10^3/uL (0.0-0.2); BASO % 0.6 % (0.0-1.0); EOS # 0.1 10^3/uL (0.0-0.5); EOS % 1.1 % (0.0-3.0); HEMATOCRIT 42.6 % (36.0-47.0); HEMOGLOBIN 13.8 g/dl (12.0-15.5); LYMPH # 1.6 10^3/uL (1.5-5.0); LYMPH % 19.5 % (24.0-44.0); MEAN CORPUSCULAR HEMOGLOBIN 31.5 pg (27.0-33.0); MEAN CORPUSCULAR HGB CONC 32.4 g/dl (32.0-36.5); MEAN CORPUSCULAR VOLUME 97.3 fl (80.0-96.0); MONO # 0.8 10^3/uL (0.0-0.8); NEUTROPHILS # 5.5 10^3/uL (1.5-8.5); NEUTROPHILS % 68.6 % (36.0-66.0); PLATELET COUNT, AUTOMATED 290 10^3/uL (150-450); RED BLOOD COUNT 4.38 10^6/uL (4.00-5.40); WHITE BLOOD COUNT 8.1 10^3/uL (4.0-10.0)
--- NOTE | 2021-04-30 16:54 | REP ---
INDICATION: CHEST PAIN. COMPARISON: 02/25/2021. TECHNIQUE: Single portable AP view of the chest was performed. FINDINGS: There is no acute infiltrate or pulmonary edema. There is mild bibasilar fibrotic change which is stable.. The heart is not significantly enlarged. The mediastinal silhouette is unremarkable. The visualized osseous structures are intact. IMPRESSION: No acute pulmonary disease. <Electronically signed by Cassius Mendosa > 04/30/21 [id number]
[2021-04-30 17:31] LABS: BLOOD UREA NITROGEN 15 MG/DL (7-18); CARBON DIOXIDE LEVEL 25 MEQ/L (21-32); CHLORIDE LEVEL 108 MEQ/L (98-107); CREATININE FOR GFR 0.89 MG/DL (0.55-1.30); GLOMERULAR FILTRATION RATE > 60.0 (>45); GLUCOSE, FASTING 86 MG/DL (70-100); POTASSIUM SERUM 4.2 MEQ/L (3.5-5.1); SODIUM LEVEL 139 MEQ/L (136-145)
--- OUTSIDE RECORDS SUMMARY | 2021-04-30 17:31 | CCD ---
Author Author [facility] Organization [facility] Address Unknown Phone Unavailable Support Name Relationship Address Phone YUNG AARON Next Of Kin [address] [place] [address] VONSAFLAKOPRISCILA Next Of Kin [address] [place] [address] GALENPhillip CROSS Next Of Kin [address] [place] [address] YUNG AARON ECON [address] [place] [address] Unavailable Re-disclosure Warning The records that you [...] is protected by Article 27-F of the [facility] Public Health law. If you continue you may have access to information: Regarding HIV / AIDS; Provided by facilities licensed or operated by the [facility] Office of Mental Health; or Provided by the [facility] Office for People With Developmental Disabilities. If such information is present, then the following [facility] mandated warning applies: This information has [...] law may result in a fine or mcfp sentence or both. A general authorization for [...] Complete: YESThis Data wa s Submitted to [facility] Via [employer]. COVID-19 VACCINE Moderna 09/12/2020 12:00:00 AM EST completed [facility] Vaccine Series Complete: NOThis Data was Submitted to [facility] Via [facility]. Medications Medication Brand Name Start Date Product [...] type / Coverage type Policy ID Covered alliance party ID Covered alliance party's relationship to kelsey Policy Kelsey Plan Information [id number] [place]/307 [id number] SP [id number] HMO BLUE [id number] SP [id number] BCBS [facility] [place] [id number] SP [id number] [place] 302/307 [id number] SP [id number] BC[place]/307 [place]/307 [id number] Self RIKI AARON [place]BS [place]PO 302/307 BC[place] 302/307 [id number] SP [id number] BC/BS Hmo Healthy Blue Medigap Part B [id number] Self [employer] BCBS B [id number] S [id number] SELF PAY ONLY [id number] SP [id number] BCBS [employer] Ppo U/W Commercial [id number] Self Problems, Conditions, and Diagnoses No Information Surgeries/Procedures Procedure Description Date Indications Data Source(s) UPPER NDSC BIOPSY SINGLE/MULTIPLE 03/12/2020 12:00:00 AM EDT [facility] ([facility]) COLONOSCOPY W/BIOPSY SINGLE/MULTIPLE 03/12/2020 12:00: 00 AM EDT [facility] ([facility]) Results ID Date Data Source [id number] 08/16/2020 06:14:00 PM EST [facility] Name Value Range Interpretation Code Description Data Delores rce(s) Supporting Document(s) SARS coronavirus 2 RNA [Presence] in Res piratory specimen by ADRIANNA with probe detection POSITIVE [facility] This lab was ordered by [facility] a nd reported by [facility]. ID Date Data Source [id number] 07/25/2020 12:00:00 AM EST [facility] Name Value Range Interpretation Code Description Data Delores rce(s) Supporting Document(s) SARS-CoV-2 (COVID-19) RNA [Presence] in Respiratory specimen by ADRIANNA with probe detection Not Detected [facility] This lab was ordered by [facility] and reported by [facility]. ID Date Data Source [id number] 03/12/2020 09:34:00 AM EDT [facility] ([facility]) Name Value Range Interpretation Code Description Data Delores rce(s) Supporting Document(s) Surgical pathology study Laboratory test result [facility] ([facility]) FINAL DIAGNOSIS A-Esophagus, below Z-line, biopsy: [...] MD 03/13/2020 1038 ID Date Data Source [id number] 03/07/2020 11:45:00 AM EDT [facility] Name Value Range Interpretation Code Description Data Delores rce(s) Supporting Document(s) SARS coronavirus 2 RNA [facility] This lab was ordered by [facility] and reported by [facility]. Procedure Social History No Information
[2021-04-30 17:32] LABS: ALBUMIN 3.8 GM/DL (3.2-5.2); ALT/SGPT 18 U/L (12-78); BILIRUBIN,DIRECT 0.3 MG/DL (0.0-0.2); BILIRUBIN,TOTAL 1.4 MG/DL (0.2-1.0); CALCIUM LEVEL 9.3 MG/DL (8.8-10.2); NT-PRO BNP 29 PG/ML (<125); TOTAL PROTEIN 7.1 GM/DL (6.4-8.2)
[2021-04-30] MEDS ORDERED: ISOVUE-370 76% 100ML VIAL As Ordered ONE (19:01)
[2021-04-30 21:00] VITALS: BP 127/81
--- NOTE | 2021-04-30 21:00 | REPVR ---
PROCEDURE INFORMATION: Exam: CTA Chest With Contrast Exam date and time: 04/30/2021 7:24 PM Age: 61 years old Clinical indication: Pain; Angina pectoris; Additional info: Chest pain TECHNIQUE: Imaging protocol: Computed tomographic angiography of the chest with contrast. 3D rendering (Not supervised by radiologist): MIP and/or 3D reconstructed images were created by the technologist. Radiation optimization: All CT scans at this facility use at least one of these dose optimization techniques: automated exposure control; mA and/or kV adjustment per patient size (includes targeted exams where dose is matched to clinical indication); or iterative reconstruction. Contrast material: ISOVUE 370; Contrast volume: 75 ml; Contrast route: INTRAVENOUS (IV); COMPARISON: CT ANGIO CHEST 12/12/2020 7:05 PM FINDINGS: Pulmonary arteries: Normal. No pulmonary emboli. Aorta: Unremarkable. No aortic aneurysm. No aortic dissection. Lungs: Diffuse emphysematous changes. Pleural spaces: Unremarkable. No pneumothorax. No pleural effusion. Heart: Unremarkable. No cardiomegaly. No pericardial effusion. Lymph nodes: Unremarkable. No enlarged lymph nodes. Gallbladder and bile ducts: Cholecystectomy clips. Bones/joints: Unremarkable. No acute fracture. Soft tissues: Unremarkable. IMPRESSION: No pulmonary embolism. Diffuse emphysematous changes. Electronically signed by: Edson Wright On 04/30/2021 20:59:46 PM
--- NOTE | 2021-05-01 18:55 | ECGEPIP ---
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
== END 2021-04-30 21:35 | disposition home or self-care (01) ==
LOC: M ED 15:46
DX: R07.9 Chest pain, unspecified (principal); I10 Essential (primary) hypertension; K21.9 Gastro-esophageal reflux disease without esophagitis; J44.9 Chronic obstructive pulmonary disease, unspecified; Z86.16 Personal history of COVID-19; Z87.891 Personal history of nicotine dependence
CPT/HCPCS: 71045; 71275; 80048; 80076; 83880; 85025; 93005; 99284; Q9967

== ENCOUNTER → 2021-09-16 | Outpatient (CLI) | payer BC ==
[~2021-09-16] MED LIST changes: -LISI-898 PO; +LISI2.5T9 PO; +LISI5TAB11 PO
[2021-09-16 17:36] LABS: HEMATOCRIT 43.2 % (36.0-47.0); HEMOGLOBIN 14.1 g/dl (12.0-15.5); MEAN CORPUSCULAR HEMOGLOBIN 31.4 pg (27.0-33.0); MEAN CORPUSCULAR HGB CONC 32.6 g/dl (32.0-36.5); MEAN CORPUSCULAR VOLUME 96.2 fl (80.0-96.0); PLATELET COUNT, AUTOMATED 302 10^3/uL (150-450); RED BLOOD COUNT 4.49 10^6/uL (4.00-5.40); WHITE BLOOD COUNT 6.2 10^3/uL (4.0-10.0)
[2021-09-16 17:44] LABS: HEMOGLOBIN A1c 5.4 %
[2021-09-16 17:50] LABS: CK-MB VALUE MASS < 1.0 NG/ML (<3.6); CPK CREATINE PHOSPHOKINASE 143 U/L (26-192)
[2021-09-16 17:56] LABS: ALBUMIN 4.1 GM/DL (3.2-5.2); ALT/SGPT 22 U/L (12-78); BLOOD UREA NITROGEN 16 MG/DL (7-18); CALCIUM LEVEL 9.9 MG/DL (8.8-10.2); CARBON DIOXIDE LEVEL 32 MEQ/L (21-32); CHLORIDE LEVEL 104 MEQ/L (98-107); CREATININE FOR GFR 0.93 MG/DL (0.55-1.30); GLOMERULAR FILTRATION RATE > 60.0 (>45); GLUCOSE, FASTING 81 MG/DL (70-100); POTASSIUM SERUM 4.6 MEQ/L (3.5-5.1); SODIUM LEVEL 139 MEQ/L (136-145); TOTAL PROTEIN 7.8 GM/DL (6.4-8.2)
[2021-09-16 17:57] LABS: TOTAL 25(OH) VITAMIN D 22.8 NG/ML (30.0-100.0)
== END ==
LOC: M PLALAB 14:52
PROVIDERS: ATTEND Family Medicine
DX: D64.9 Anemia, unspecified (principal); R53.83 Other fatigue; E03.9 Hypothyroidism, unspecified

== ENCOUNTER → 2021-09-16 | Outpatient (CLI) | payer BC | LOC: M WHC 14:14 | PROVIDERS: ATTEND Family Medicine | DX: Z12.31 Encounter for screening mammogram for malignant neoplasm of breast (principal) ==

== ENCOUNTER → 2022-04-14 | Outpatient (CLI) | payer BC ==
[2022-04-14 10:23] LABS: HEMATOCRIT 43.5 % (36.0-47.0); HEMOGLOBIN 13.6 g/dl (12.0-15.5); MEAN CORPUSCULAR HEMOGLOBIN 30.8 pg (27.0-33.0); MEAN CORPUSCULAR HGB CONC 31.3 g/dl (32.0-36.5); MEAN CORPUSCULAR VOLUME 98.4 fl (80.0-96.0); PLATELET COUNT, AUTOMATED 312 10^3/uL (150-450); RED BLOOD COUNT 4.42 10^6/uL (4.00-5.40); WHITE BLOOD COUNT 5.8 10^3/uL (4.0-10.0)
[2022-04-14 10:47] LABS: HEMOGLOBIN A1c 5.4 %
[2022-04-14 11:07] LABS: ALBUMIN 3.5 GM/DL (3.2-5.2); ALT/SGPT 19 U/L (12-78); BILIRUBIN,TOTAL 0.7 MG/DL (0.2-1.0); BLOOD UREA NITROGEN 12 MG/DL (7-18); CALCIUM LEVEL 8.9 MG/DL (8.8-10.2); CARBON DIOXIDE LEVEL 28 MEQ/L (21-32); CHLORIDE LEVEL 107 MEQ/L (98-107); CHOLESTEROL LEVEL 191 MG/DL (<200); CREATININE FOR GFR 0.86 MG/DL (0.55-1.30); GLOMERULAR FILTRATION RATE > 60.0 (>45); GLUCOSE, FASTING 88 MG/DL (70-100); HDL CHOLESTEROL 100 MG/DL (>40); LDL CHOLESTEROL 82 MG/DL (<100); NON-HDL-C 91 MG/DL; POTASSIUM SERUM 4.1 MEQ/L (3.5-5.1); SODIUM LEVEL 139 MEQ/L (136-145); THYROID STIMULATING HORMONE 0.594 uIU/ML (0.358-3.740); TRIGLYCERIDES LEVEL 45 MG/DL (<150)
[2022-04-15 15:05] LABS: TOTAL 25(OH) VITAMIN D 61.3 NG/ML (30.0-100.0)
== END ==
LOC: M RAD 09:43
PROVIDERS: ATTEND Family Medicine
DX: I10 Essential (primary) hypertension (principal); R53.83 Other fatigue; E03.9 Hypothyroidism, unspecified; J44.9 Chronic obstructive pulmonary disease, unspecified; R94.31 Abnormal electrocardiogram [ECG] [EKG]

== ENCOUNTER 2022-06-24 11:05 | Emergency (ER) | payer BC ==
[~2022-06-24] VITALS: Ht 154.9 cm; Wt 47.0 kg
[2022-06-24] MEDS ORDERED: LEVO100T5 (11:24)
[2022-06-24 12:38] LABS: BASO % 0.4 % (0.0-1.0); EOS % 0.8 % (0.0-3.0); HEMATOCRIT 43.9 % (36.0-47.0); LYMPH % 18.9 % (24.0-44.0); MEAN CORPUSCULAR HGB CONC 31.9 g/dl (32.0-36.5); MONO # 0.6 10^3/uL (0.0-0.8); NEUTROPHILS # 3.6 10^3/uL (1.5-8.5); NEUTROPHILS % 68.5 % (36.0-66.0); PLATELET COUNT, AUTOMATED 234 10^3/uL (150-450); RED BLOOD COUNT 4.67 10^6/uL (4.00-5.40); WHITE BLOOD COUNT 5.3 10^3/uL (4.0-10.0)
[2022-06-24 12:56] LABS: BLOOD UREA NITROGEN 10 MG/DL (9-23); CALCIUM LEVEL 8.7 MG/DL (8.3-10.6); CARBON DIOXIDE LEVEL 28 MMOL/L (20-31); CHLORIDE LEVEL 104 MMOL/L (98-107); CREATININE FOR GFR 0.74 MG/DL (0.55-1.30); GLOMERULAR FILTRATION RATE > 60.0 (>45); GLUCOSE, FASTING 94 MG/DL (74-106); POTASSIUM SERUM 3.9 MMOL/L (3.5-5.1); SODIUM LEVEL 138 MMOL/L (136-145)
[2022-06-24 14:34] VITALS: BP 141/81
== END 2022-06-24 14:55 | disposition home or self-care (01) ==
LOC: EDBD 11:05 → M ED 11:05
DX: R53.1 Weakness (principal); R42 Dizziness and giddiness; R04.0 Epistaxis; I10 Essential (primary) hypertension; J44.9 Chronic obstructive pulmonary disease, unspecified; K21.9 Gastro-esophageal reflux disease without esophagitis; Z87.891 Personal history of nicotine dependence; Z88.0 Allergy status to penicillin; Z88.2 Allergy status to sulfonamides; Z88.5 Allergy status to narcotic agent

== ENCOUNTER 2022-06-26 14:17 | Emergency (ER) | payer BC ==
[~2022-06-26] VITALS: Ht 154.9 cm; Wt 50.1 kg
[~2022-06-26 14:17] MED LIST changes: +LEVO100T5
[2022-06-26 15:53] LABS: HEMATOCRIT 42.3 % (36.0-47.0); MEAN CORPUSCULAR HEMOGLOBIN 30.3 pg (27.0-33.0); MEAN CORPUSCULAR HGB CONC 33.1 g/dl (32.0-36.5); MEAN CORPUSCULAR VOLUME 91.6 fl (80.0-96.0); PLATELET COUNT, AUTOMATED 272 10^3/uL (150-450); RED BLOOD COUNT 4.62 10^6/uL (4.00-5.40); WHITE BLOOD COUNT 4.5 10^3/uL (4.0-10.0)
[2022-06-26 16:09] LABS: LYMPHOCYTES 37 % (16-44); MONOCYTES 4 % (0-5); NEUTROPHILS 59 % (28-66); PLATELET ESTIMATE NORMAL (NORMAL)
[2022-06-26 16:28] LABS: ALBUMIN 3.4 G/DL (3.2-5.2); ALKALINE PHOSPHATASE 85 U/L (46-116); ALT/SGPT 26 U/L (7.0-40); AST/SGOT 33 U/L (<34); BILIRUBIN,TOTAL 1.1 MG/DL (0.3-1.2); BLOOD UREA NITROGEN 8 MG/DL (9-23); CALCIUM LEVEL 9.2 MG/DL (8.3-10.6); CARBON DIOXIDE LEVEL 20 MMOL/L (20-31); CHLORIDE LEVEL 106 MMOL/L (98-107); CREATININE FOR GFR 0.66 MG/DL (0.55-1.30); GLOMERULAR FILTRATION RATE > 60.0 (>45); GLUCOSE, FASTING 92 MG/DL (74-106); POTASSIUM SERUM 3.9 MMOL/L (3.5-5.1); SODIUM LEVEL 140 MMOL/L (136-145)
[2022-06-26] MEDS ORDERED: GI COCKTAIL 50ML BTL(HYOSCYAMINE/MAALOX/LIDOCAINE VISCOUS)(1:3:1) PO ONE (18:15)
[2022-06-26 19:14] LABS: CK-MB VALUE MASS < 1.0 NG/ML (<3.6)
[2022-06-26 19:17] LABS: CPK CREATINE PHOSPHOKINASE 117 U/L (34-145); MB/CK RELATIVE INDEX 0.85 (< OR =4)
[2022-06-26 19:18] LABS: THYROXINE (T4) 14.7 UG/DL (4.5-10.9)
[2022-06-26 19:20] LABS: FREE THYROXINE INDEX 4.6 % (1.3-4.8); T UPTAKE 31.5 % (22.5-37.0)
[2022-06-26] MEDS ORDERED: ISOVUE-370 76% 100ML VIAL As Ordered ONE (21:03)
[2022-06-26 21:45] VITALS: BP 158/99
[2022-06-26] MEDS ORDERED: HOLTER MONITOR XX (22:38)
== END 2022-06-26 23:05 | disposition home or self-care (01) ==
LOC: M ED 14:17
DX: R53.83 Other fatigue (principal); R53.1 Weakness; R55 Syncope and collapse; R91.8 Other nonspecific abnormal finding of lung field; J43.9 Emphysema, unspecified; J44.9 Chronic obstructive pulmonary disease, unspecified; I10 Essential (primary) hypertension; K21.9 Gastro-esophageal reflux disease without esophagitis; E03.9 Hypothyroidism, unspecified; Z79.890 Hormone replacement therapy; Z79.899 Other long term (current) drug therapy; Z88.0 Allergy status to penicillin; Z88.2 Allergy status to sulfonamides; Z88.5 Allergy status to narcotic agent

== ENCOUNTER → 2022-06-30 | Outpatient (CLI) | payer BC ==
[~2022-06-30] MED LIST changes: +HOLTER MONITOR XX
== END ==
LOC: M EKG 12:52
PROVIDERS: ATTEND Physician Assistant
DX: R00.2 Palpitations (principal); R42 Dizziness and giddiness; R06.00 Dyspnea, unspecified

== ENCOUNTER → 2022-10-12 | Outpatient (CLI) | payer BC | LOC: M PLARAD 08:35 | PROVIDERS: ATTEND Physician Assistant | DX: R91.8 Other nonspecific abnormal finding of lung field (principal) | CPT/HCPCS: 78815; A9552 ==

== ENCOUNTER → 2023-03-08 | Outpatient (CLI) | payer BC ==
[~2023-03-08] MED LIST changes: +CYAN-1 PO; -CYAN100050 PO
== END ==
LOC: M RAD 14:58
PROVIDERS: ATTEND Family Medicine
DX: M25.551 Pain in right hip (principal); M25.552 Pain in left hip; M16.0 Bilateral primary osteoarthritis of hip

== ENCOUNTER → 2023-11-02 | Outpatient (CLI) | payer BC ==
[2023-11-02 13:32] LABS: HEMATOCRIT 45.7 % (36.0-47.0); HEMOGLOBIN 14.5 g/dl (12.0-15.5); MEAN CORPUSCULAR HEMOGLOBIN 31.3 pg (27.0-33.0); MEAN CORPUSCULAR HGB CONC 31.7 g/dl (32.0-36.5); MEAN CORPUSCULAR VOLUME 98.5 fl (80.0-96.0); PLATELET COUNT, AUTOMATED 279 10^3/uL (150-450); RED BLOOD COUNT 4.64 10^6/uL (4.00-5.40); WHITE BLOOD COUNT 7.9 10^3/uL (4.0-10.0)
[2023-11-02 13:50] LABS: HEMOGLOBIN A1c 5.1 % (4.0-6.0)
[2023-11-02 14:28] LABS: ALBUMIN 3.7 G/DL (3.2-5.2); ALKALINE PHOSPHATASE 96 U/L (46-116); ALT/SGPT 19 U/L (7.0-40); AST/SGOT 19 U/L (<34); BILIRUBIN,TOTAL 1.2 MG/DL (0.3-1.2); BLOOD UREA NITROGEN 12 MG/DL (9-23); CALCIUM LEVEL 9.2 MG/DL (8.3-10.6); CARBON DIOXIDE LEVEL 26 MMOL/L (20-31); CHLORIDE LEVEL 105 MMOL/L (98-107); CHOLESTEROL LEVEL 191 MG/DL (<200); CHOLESTEROL RISK RATIO 2.27 (<5); CREATININE FOR GFR 0.78 MG/DL (0.55-1.30); GLOMERULAR FILTRATION RATE > 60.0 (>45); GLUCOSE, FASTING 84 MG/DL (74-106); HDL CHOLESTEROL 83.8 MG/DL (>40); NON-HDL-C 107.2 MG/DL; POTASSIUM SERUM 4.4 MMOL/L (3.5-5.1); SODIUM LEVEL 139 MMOL/L (136-145); THYROID STIMULATING HORMONE 1.349 uIU/ML (0.55-4.78); TOTAL 25(OH) VITAMIN D 108.8 NG/ML (20.0-100.0); TOTAL PROTEIN 6.8 G/DL (5.7-8.2); TRIGLYCERIDES LEVEL 81 MG/DL (<150)
== END ==
LOC: M LAB 11:21
PROVIDERS: ATTEND Family Medicine
DX: I10 Essential (primary) hypertension (principal); E03.9 Hypothyroidism, unspecified; R53.83 Other fatigue; J44.9 Chronic obstructive pulmonary disease, unspecified

== ENCOUNTER 2023-11-17 22:04 | Emergency (ER) | payer BC ==
[~2023-11-17] VITALS: Ht 154.9 cm; Wt 46.8 kg
[2023-11-17] MEDS ORDERED: ALBU8.5H PO (22:21)
[2023-11-17] MEDS ORDERED: ADVA115A INH (22:21)
[2023-11-18] MEDS ORDERED: ISOVUE-370 76% 100ML VIAL As Ordered ONE (05:00)
[2023-11-18 08:29] VITALS: BP 149/88; TEMP 97.4; O2SAT 94
== END 2023-11-18 08:41 | disposition home or self-care (01) ==
LOC: M ED 22:04
DX: J06.9 Acute upper respiratory infection, unspecified (principal); I10 Essential (primary) hypertension; J44.9 Chronic obstructive pulmonary disease, unspecified; Z88.0 Allergy status to penicillin; Z88.2 Allergy status to sulfonamides; Z88.8 Allergy status to other drugs, medicaments and biological substances; Z79.51 Long term (current) use of inhaled steroids; Z79.899 Other long term (current) drug therapy
CPT/HCPCS: 36415; 70491; 71045; 80047; 87486; 87581; 87633; 87798; 99284; Q9967

== ENCOUNTER → 2023-11-23 | Outpatient (CLI) | payer BC ==
[~2023-11-23] MED LIST changes: +ADVA115A INH; +ALBU8.5H PO
== END ==
LOC: M PLAIMG 13:51
PROVIDERS: ATTEND Physician Assistant
DX: R91.8 Other nonspecific abnormal finding of lung field (principal); J44.9 Chronic obstructive pulmonary disease, unspecified; J43.9 Emphysema, unspecified; J47.9 Bronchiectasis, uncomplicated; I70.0 Atherosclerosis of aorta; Z90.49 Acquired absence of other specified parts of digestive tract

== ENCOUNTER 2024-07-19 18:23 | Inpatient (IN) | payer BC ==
[~2024-07-19] VITALS: Ht 154.9 cm; Wt 48.8 kg
[~2024-07-19 18:23] MED LIST changes: -LEVO100T5; +LEVO100T5 PO
[2024-07-19 19:38] LABS: BASO % 0.2 % (0.0-1.0); EOS # 0.1 10^3/uL (0.0-0.5); EOS % 0.6 % (0.0-3.0); HEMATOCRIT 43.9 % (36.0-47.0); HEMOGLOBIN 14.5 g/dl (12.0-15.5); LYMPH % 11.2 % (24.0-44.0); MEAN CORPUSCULAR HEMOGLOBIN 31.3 pg (27.0-33.0); MEAN CORPUSCULAR VOLUME 94.8 fl (80.0-96.0); MONO # 1.1 10^3/uL (0.0-0.8); MONO % 11.9 % (2.0-8.0); NEUTROPHILS % 75.9 % (36.0-66.0); PLATELET COUNT, AUTOMATED 239 10^3/uL (150-450); RED BLOOD COUNT 4.63 10^6/uL (4.00-5.40); WHITE BLOOD COUNT 9.3 10^3/uL (4.0-10.0)
[2024-07-19 20:03] LABS: ALBUMIN 3.6 G/DL (3.2-5.2); ALKALINE PHOSPHATASE 82 U/L (35-104); ALT/SGPT 26 U/L (7.0-40); AST/SGOT 31 U/L (<34); BILIRUBIN,DIRECT 0.3 MG/DL (<0.4); BILIRUBIN,TOTAL 0.7 MG/DL (0.3-1.2); BLOOD UREA NITROGEN 21 MG/DL (9-23); CALCIUM LEVEL 8.8 MG/DL (8.3-10.6); CARBON DIOXIDE LEVEL 23 MMOL/L (20-31); CHLORIDE LEVEL 102 MMOL/L (98-107); CK-MB VALUE MASS < 1.0 NG/ML (<3.6); CPK CREATINE PHOSPHOKINASE 133 U/L (34-145); GLOMERULAR FILTRATION RATE > 60.0 (>45); GLUCOSE, FASTING 84 MG/DL (74-106); MB/CK RELATIVE INDEX 0.75 (< OR =4); POTASSIUM SERUM 4.2 MMOL/L (3.5-5.1); SODIUM LEVEL 135 MMOL/L (136-145)
[2024-07-20] MEDS: predniSONE 20 MG TAB PO ONE (03:13)
[2024-07-20] MEDS: IPRATROPIUM 0.5MG/ALBUTEROL 2.5MG INH SOL UD 3ML (DUONEB) NEB ONE (03:18)
[2024-07-20] MEDS ORDERED: ALBUTEROL 90 MCG/ACT 8GM HFA INHALER INH PRN (05:10)
[2024-07-20] MEDS ORDERED: MAALOX 30 ML SUSP *UDC PO PRN (05:10)
[2024-07-20] MEDS ORDERED: ACETAMINOPHEN 325 MG TAB PO PRN (05:10)
[2024-07-20] MEDS ORDERED: MOM 30ML SUSPENSION UDC PO PRN (05:10)
[2024-07-20] MEDS ORDERED: ADVA230A INH (05:34)
[2024-07-20] MEDS ORDERED: METO1TAB87 PO (05:34)
[2024-07-20] MEDS ORDERED: HOME MED LIST COMPLETE! XX SCH (05:35)
[2024-07-20] MEDS: NS (Normal Saline) 0.9% 1,000 ML IV SCH (05:49)
[2024-07-20] MEDS: LevoFLOXacin 500 MG TABLET PO ONE (05:50)
[2024-07-20] MEDS: AZITHROMYCIN INJ 500 MG, VIAL MATE ADAPTER 1 EACH in NS 250 ML IV SCH (06:00)
[2024-07-20] MEDS: LEVOTHYROXINE 100MCG TABLET (0.1MG) PO SCH (07:36)
[2024-07-20] MEDS: DOCUSATE SODIUM 100MG CAPSULE PO SCH (08:15)
[2024-07-20] MEDS: HEPARIN SOD (PORCINE) 5000UNITS/ML 1ML VIAL/SYRINGE SC SCH (08:15)
[2024-07-20] MEDS: PANTOPRAZOLE 40MG VIAL IV SCH (08:15)
[2024-07-20] MEDS: METOPROLOL TART 12.5 MG PER 1/2 TAB PO SCH (08:16)
[2024-07-20] MEDS: OSELTAMIVIR PHOSPHATE 75 MG CAP (TAMIFLU) PO ONE (08:16)
[2024-07-20] MEDS: IPRATROPIUM 0.5MG/ALBUTEROL 2.5MG INH SOL UD 3ML (DUONEB) NEB SCH (11:22)
[2024-07-20] MEDS ORDERED: OSELTAMIVIR PHOSPHATE 30MG CAPSULE PO SCH (21:00)
[2024-07-20] MEDS: OSELTAMIVIR PHOSPHATE 75 MG CAP (TAMIFLU) PO SCH (21:11)
[2024-07-20 23:25] VITALS: BP 125/77; TEMP 97.9; O2SAT 91
[2024-07-21 04:27] VITALS: BP 114/80; TEMP 98.1; O2SAT 93
[2024-07-21] MEDS: LevoFLOXacin 750 MG TABLET PO SCH (05:08)
[2024-07-21] MEDS: predniSONE 20 MG TAB PO SCH (05:08)
[2024-07-21 05:33] LABS: KETONE, URINE AUTO RFX TRACE mg/dL (NEGATIVE); LEUKOCYTE ESTERASE UR AUTO RFX TRACE (NEGATIVE); MUCUS, URINE RFX SMALL (NEGATIVE); NITRITE, URINE AUTO RFX NEGATIVE (NEGATIVE); RBC, URINE AUTO RFX 2 /HPF (0-3); SQUAM EPITHELIAL CELL UR AURFX 1 /HPF (0-6); WBC, URINE AUTO RFX 6 /HPF (0-3)
[2024-07-21] MEDS ORDERED: LevoFLOXacin 250 MG TABLET PO SCH (06:00)
[2024-07-21 07:32] VITALS: O2SAT 90
[2024-07-21 08:09] LABS: HEMATOCRIT 36.9 % (36.0-47.0); HEMOGLOBIN 12.3 g/dl (12.0-15.5); MEAN CORPUSCULAR HEMOGLOBIN 31.3 pg (27.0-33.0); MEAN CORPUSCULAR HGB CONC 33.3 g/dl (32.0-36.5); MEAN CORPUSCULAR VOLUME 93.9 fl (80.0-96.0); PLATELET COUNT, AUTOMATED 203 10^3/uL (150-450); RED BLOOD COUNT 3.93 10^6/uL (4.00-5.40); WHITE BLOOD COUNT 6.9 10^3/uL (4.0-10.0)
[2024-07-21 08:27] LABS: PROCALCITONIN 0.26 ng/ml
[2024-07-21 08:29] LABS: ALBUMIN 2.7 G/DL (3.2-5.2); ALKALINE PHOSPHATASE 62 U/L (35-104); ALT/SGPT 18 U/L (7.0-40); AST/SGOT 21 U/L (<34); BILIRUBIN,TOTAL 0.6 MG/DL (0.3-1.2); BLOOD UREA NITROGEN 16 MG/DL (9-23); CALCIUM LEVEL 7.7 MG/DL (8.3-10.6); CARBON DIOXIDE LEVEL 24 MMOL/L (20-31); CHLORIDE LEVEL 109 MMOL/L (98-107); CREATININE FOR GFR 0.81 MG/DL (0.55-1.30); GLOMERULAR FILTRATION RATE > 60.0 (>45); GLUCOSE, FASTING 92 MG/DL (74-106); MAGNESIUM LEVEL 1.7 MG/DL (1.8-2.4); POTASSIUM SERUM 4.2 MMOL/L (3.5-5.1); SODIUM LEVEL 140 MMOL/L (136-145); TOTAL PROTEIN 5.6 G/DL (5.7-8.2)
[2024-07-21 10:30] VITALS: BP_SYST 101; BP_SYST 111; BP_SYST 112; BP_DIAS 68; BP_DIAS 69; BP_DIAS 71
[2024-07-21 12:00] VITALS: BP 119/76; TEMP 97.5; O2SAT 93
[2024-07-21 20:16] VITALS: BP 138/75; TEMP 97.9; O2SAT 91
[2024-07-22] VITALS (8 sets, daily range): BP systolic 129–145; BP diastolic 69–83; TEMP 97.3–97.7; O2SAT 87–96
[2024-07-22] MEDS ORDERED: ISOVUE-370 76% 100ML VIAL As Ordered ONE (09:41)
[2024-07-22] MEDS: MAG SULF 1GM/100ML (MAG RUN) 1 GM in IV 1 EA IV SCH (09:47)
[2024-07-22] MEDS: methylPREDNISolone 40MG 1ML VIAL IV SCH (09:48)
[2024-07-22 09:51] LABS: HEMATOCRIT 39.3 % (36.0-47.0); HEMOGLOBIN 13.1 g/dl (12.0-15.5); MEAN CORPUSCULAR HEMOGLOBIN 31.4 pg (27.0-33.0); MEAN CORPUSCULAR HGB CONC 33.3 g/dl (32.0-36.5); MEAN CORPUSCULAR VOLUME 94.2 fl (80.0-96.0); PLATELET COUNT, AUTOMATED 191 10^3/uL (150-450); RED BLOOD COUNT 4.17 10^6/uL (4.00-5.40); WHITE BLOOD COUNT 4.9 10^3/uL (4.0-10.0)
[2024-07-22 10:22] LABS: BLOOD UREA NITROGEN 13 MG/DL (9-23); CALCIUM LEVEL 7.9 MG/DL (8.3-10.6); CARBON DIOXIDE LEVEL 28 MMOL/L (20-31); CHLORIDE LEVEL 106 MMOL/L (98-107); CREATININE FOR GFR 0.76 MG/DL (0.55-1.30); GLOMERULAR FILTRATION RATE > 60.0 (>45); GLUCOSE, FASTING 93 MG/DL (74-106); MAGNESIUM LEVEL 1.7 MG/DL (1.8-2.4); POTASSIUM SERUM 3.5 MMOL/L (3.5-5.1); SODIUM LEVEL 142 MMOL/L (136-145)
[2024-07-22] MEDS: IPRATROPIUM 0.5MG/ALBUTEROL 2.5MG INH SOL UD 3ML (DUONEB) NEB SCH (12:00)
[2024-07-23 04:41] VITALS: BP 115/80; TEMP 97.9; O2SAT 91
[2024-07-23 07:23] VITALS: O2SAT 92
[2024-07-23 08:27] LABS: HEMATOCRIT 41.6 % (36.0-47.0); HEMOGLOBIN 13.9 g/dl (12.0-15.5); MEAN CORPUSCULAR HEMOGLOBIN 31.3 pg (27.0-33.0); MEAN CORPUSCULAR HGB CONC 33.4 g/dl (32.0-36.5); MEAN CORPUSCULAR VOLUME 93.7 fl (80.0-96.0); PLATELET COUNT, AUTOMATED 241 10^3/uL (150-450); RED BLOOD COUNT 4.44 10^6/uL (4.00-5.40); WHITE BLOOD COUNT 3.3 10^3/uL (4.0-10.0)
[2024-07-23 08:59] LABS: BLOOD UREA NITROGEN 14 MG/DL (9-23); CALCIUM LEVEL 9.2 MG/DL (8.3-10.6); CARBON DIOXIDE LEVEL 28 MMOL/L (20-31); CHLORIDE LEVEL 101 MMOL/L (98-107); GLOMERULAR FILTRATION RATE > 60.0 (>45); GLUCOSE, FASTING 120 MG/DL (74-106); MAGNESIUM LEVEL 2.2 MG/DL (1.8-2.4); POTASSIUM SERUM 3.9 MMOL/L (3.5-5.1); SODIUM LEVEL 138 MMOL/L (136-145)
[2024-07-23 12:00] VITALS: BP 104/66; TEMP 97.2; O2SAT 92
[2024-07-23] MEDS ORDERED: LORazepam 0.5 MG TAB PO PRN (14:15)
[2024-07-23] MEDS: LACTOBACILLUS ACIDOPHILUS CAP (BACID) PO SCH (17:14)
[2024-07-23 18:33] VITALS: BP 147/83; TEMP 97; O2SAT 92
[2024-07-23 19:48] VITALS: BP 117/85; TEMP 97.5; O2SAT 91
[2024-07-24 04:22] VITALS: BP 113/64; TEMP 97.7; O2SAT 93
[2024-07-24 06:16] LABS: HEMATOCRIT 40.6 % (36.0-47.0); MEAN CORPUSCULAR HEMOGLOBIN 30.5 pg (27.0-33.0); MEAN CORPUSCULAR VOLUME 95.3 fl (80.0-96.0); PLATELET COUNT, AUTOMATED 263 10^3/uL (150-450); RED BLOOD COUNT 4.26 10^6/uL (4.00-5.40); WHITE BLOOD COUNT 6.1 10^3/uL (4.0-10.0)
[2024-07-24 06:50] LABS: BLOOD UREA NITROGEN 18 MG/DL (9-23); CALCIUM LEVEL 8.7 MG/DL (8.3-10.6); CARBON DIOXIDE LEVEL 30 MMOL/L (20-31); CHLORIDE LEVEL 105 MMOL/L (98-107); CREATININE FOR GFR 0.77 MG/DL (0.55-1.30); GLOMERULAR FILTRATION RATE > 60.0 (>45); GLUCOSE, FASTING 130 MG/DL (74-106); POTASSIUM SERUM 4.4 MMOL/L (3.5-5.1); SODIUM LEVEL 142 MMOL/L (136-145)
[2024-07-24] MEDS ORDERED: SYMBICORT 80/4.5MCG INHALER 6GM INH SCH (08:00)
[2024-07-24] MEDS: ADVAIR HFA 230/21MCG INHALER INH SCH (08:00)
[2024-07-24 08:51] VITALS: BP 110/69
[2024-07-24 12:00] VITALS: BP 120/69; TEMP 97.3; O2SAT 92
[2024-07-24] MEDS ORDERED: PRED10TA2 PO (13:25)
[2024-07-24] MEDS ORDERED: OSEL75CA2 PO (13:26)
== END 2024-07-24 18:30 | disposition home health service (06) | DRG 113 ==
LOC: M ED 18:23 → M ED INP 07-20 05:07 → M MS5PR 07-20 23:25
PROVIDERS: ADMIT Student in an Organized Health Care Education/Training Program; ATTEND Student in an Organized Health Care Education/Training Program
DX: J10.1 Influenza due to other identified influenza virus with other respiratory manifestations (principal); J96.01 Acute respiratory failure with hypoxia; J44.1 Chronic obstructive pulmonary disease with (acute) exacerbation; I10 Essential (primary) hypertension; E03.9 Hypothyroidism, unspecified; K21.9 Gastro-esophageal reflux disease without esophagitis; Z85.3 Personal history of malignant neoplasm of breast; Z90.10 Acquired absence of unspecified breast and nipple; Z87.891 Personal history of nicotine dependence; Z85.850 Personal history of malignant neoplasm of thyroid; Z79.899 Other long term (current) drug therapy; Z79.890 Hormone replacement therapy; Z88.0 Allergy status to penicillin; Z88.2 Allergy status to sulfonamides; Z88.5 Allergy status to narcotic agent; R19.7 Diarrhea, unspecified

== ENCOUNTER 2024-08-09 14:45 | Emergency (ER) | payer BC ==
[~2024-08-09] VITALS: Ht 157.5 cm; Wt 51.8 kg
[~2024-08-09 14:45] MED LIST changes: +ADVA230A INH; +METO1TAB87 PO; +OSEL75CA2 PO
[2024-08-09 16:51] VITALS: TEMP 97.6
[2024-08-09 17:06] LABS: VENOUS BASE EXCESS 1.8 (-2.0-2.0); VENOUS HCO3 24.6 MMOL/L (23.0-27.0); VENOUS O2 SATURATION 63.3 % (60.0-80.0); VENOUS PARTIAL PRESSURE CO2 33.5 mmHg (38.0-50.0); VENOUS PH 7.484 UNITS (7.330-7.430); VENOUS STANDARD HCO3 25.2 MMOL/L; VENOUS TOTAL CO2 25.6 MMOL/L (24.0-28.0)
[2024-08-09 17:12] LABS: BASO % 0.3 % (0.0-1.0); EOS # 0.1 10^3/uL (0.0-0.5); EOS % 0.3 % (0.0-3.0); HEMATOCRIT 41.2 % (36.0-47.0); HEMOGLOBIN 13.5 g/dl (12.0-15.5); LYMPH # 1.5 10^3/uL (1.5-5.0); LYMPH % 10.2 % (24.0-44.0); MEAN CORPUSCULAR HEMOGLOBIN 31.5 pg (27.0-33.0); MEAN CORPUSCULAR HGB CONC 32.8 g/dl (32.0-36.5); MEAN CORPUSCULAR VOLUME 96.3 fl (80.0-96.0); MONO # 1.1 10^3/uL (0.0-0.8); MONO % 7.7 % (2.0-8.0); NEUTROPHILS # 11.4 10^3/uL (1.5-8.5); PLATELET COUNT, AUTOMATED 395 10^3/uL (150-450); RED BLOOD COUNT 4.28 10^6/uL (4.00-5.40); WHITE BLOOD COUNT 14.3 10^3/uL (4.0-10.0)
[2024-08-09] MEDS: LORazepam 2 MG/ML 1ML VIAL IV STA (17:25)
[2024-08-09 17:41] LABS: ALBUMIN 3.5 G/DL (3.2-5.2); ALKALINE PHOSPHATASE 88 U/L (35-104); ALT/SGPT 28 U/L (7.0-40); AST/SGOT 17 U/L (<34); BILIRUBIN,DIRECT 0.2 MG/DL (<0.4); BILIRUBIN,TOTAL 0.8 MG/DL (0.3-1.2); BLOOD UREA NITROGEN 20 MG/DL (9-23); CARBON DIOXIDE LEVEL 25 MMOL/L (20-31); CHLORIDE LEVEL 104 MMOL/L (98-107); CK-MB VALUE MASS < 1.0 NG/ML (<3.6); CREATININE FOR GFR 0.84 MG/DL (0.55-1.30); GLOMERULAR FILTRATION RATE > 60.0 (>45); GLUCOSE, FASTING 102 MG/DL (74-106); POTASSIUM SERUM 4.2 MMOL/L (3.5-5.1); SODIUM LEVEL 143 MMOL/L (136-145); TOTAL PROTEIN 6.9 G/DL (5.7-8.2)
[2024-08-09 17:43] LABS: THYROID STIMULATING HORMONE 0.377 uIU/ML (0.55-4.78)
[2024-08-09 17:44] LABS: CPK CREATINE PHOSPHOKINASE 68 U/L (34-145); MB/CK RELATIVE INDEX 1.47 (< OR =4)
[2024-08-09] MEDS ORDERED: ISOVUE-370 76% 100ML VIAL As Ordered ONE (17:49)
[2024-08-09 18:47] LABS: CK-MB VALUE MASS < 1.0 NG/ML (<3.6)
[2024-08-09 18:58] LABS: CPK CREATINE PHOSPHOKINASE 47 U/L (34-145); MB/CK RELATIVE INDEX 2.12 (< OR =4)
[2024-08-09] MEDS ORDERED: HYDR-3363 PO (19:27)
[2024-08-09 19:30] VITALS: BP 125/79; O2SAT 95
== END 2024-08-09 19:36 | disposition home or self-care (01) ==
LOC: M ED 14:45
DX: F41.9 Anxiety disorder, unspecified (principal); R09.89 Other specified symptoms and signs involving the circulatory and respiratory systems; J44.9 Chronic obstructive pulmonary disease, unspecified; Z87.891 Personal history of nicotine dependence; I11.0 Hypertensive heart disease with heart failure; Z79.899 Other long term (current) drug therapy; Z88.0 Allergy status to penicillin; Z88.2 Allergy status to sulfonamides; Z88.5 Allergy status to narcotic agent; Z88.8 Allergy status to other drugs, medicaments and biological substances
CPT/HCPCS: 71045; 71275; 80048; 80076; 82550; 82553; 82803; 84443; 84484; 85025; 85379; 93005; 93041; 94760; 96374; 99285; J2060; Q9967